=== PATIENT | male | born 1950 ===

== ENCOUNTER 2016-09-19 16:30 | Inpatient (IN) | payer MEDICAID, OTHER ==
[~2016-09-19] VITALS: Ht 167.6 cm; Wt 69.9 kg
[2016-09-19 17:05] VITALS: Ht 167.6 cm; Wt 69.9 kg
[2016-09-19 17:23] LABS: ADD SCAN DIFF NO
[2016-09-19 17:43] LABS: INR 1.09; PROTIME 14.1 Sec (12.2-14.2); PT RATIO 1.1
[2016-09-19 17:44] LABS: BASOPHILS % 0.3 % (0.0-2.0); EOSINOPHILS # 1.1 10^3/ul (0.0-0.5); EOSINOPHILS % 8.9 % (0.0-7.0); HEMATOCRIT 25.6 % (42.0-52.0); HEMOGLOBIN 8.3 g/dl (14.0-18.0); LYMPHOCYTES # 1.3 10^3/ul (0.8-2.9); LYMPHOCYTES % 11.2 % (15.0-51.0); MEAN CORPUSCULAR HEMOGLOBIN 32.5 pg (29.0-33.0); MEAN CORPUSCULAR HGB CONC 32.4 g/dl (32.0-37.0); MEAN CORPUSCULAR VOLUME 100.4 fl (82.0-101.0); MEAN PLATELET VOLUME 9.8 fl (7.4-10.4); MONOCYTES % 7.9 % (0.0-11.0); NEUTROPHIL # 8.5 10^3/ul (1.6-7.5); NEUTROPHILS % 70.6 % (39.0-77.0); PARTIAL THROMBOPLASTIN TIME 41.9 Sec (25.0-35.0); PLATELET COUNT 480 10^3/UL (140-415); RED BLOOD COUNT 2.55 10^6/ul (4.70-6.10); RED CELL DISTRIBUTION WIDTH 14.7 % (11.5-14.5)
[2016-09-19 17:49] LABS: CHLORIDE 97 mmol/L (97-110); POTASSIUM 4.8 mmol/L (3.5-5.1); SODIUM 136 mmol/L (135-144)
[2016-09-19 17:51] LABS: CREATININE 0.79 mg/dl (0.61-1.24)
[2016-09-19 17:52] LABS: ANION GAP 16 (8-16); BLOOD UREA NITROGEN 35 mg/dl (7-20); CALCIUM 10.1 mg/dl (8.4-10.2); CARBON DIOXIDE 28 mmol/L (21-31); GLUCOSE 102 mg/dl (70-220)
[2016-09-19 17:53] LABS: CREATINE KINASE 137 IU/L (23-200)
[2016-09-19 18:01] LABS: CK-MB 5.22 ng/ml (0.0-2.4)
[2016-09-19 18:09] LABS: TROPONIN-I < 0.012 ng/ml (0.00-0.12)
[2016-09-19 18:10] LABS: TROPONIN-I < 0.012 ng/ml (0.00-0.12)
--- NOTE | 2016-09-19 18:21 | RADRPT ---
PROCEDURE: XR Chest. CLINICAL INDICATION: Chest pain. TECHNIQUE: Single frontal chest x-ray. COMPARISON: None. FINDINGS: Tracheostomy tube tip is at the level of clavicles. Right PICC line tips in the SVC. Heart is norm al size. There are atherosclerotic calcifications of the aortic knob. Lungs are hyperinflated. There is no definite CHF. There is patchy left basilar atelectasis versus infiltrate. There is no pleura l effusion. There is no pneumothorax. The osseous structures are unremarkable. IMPRESSION: Hyperinflation. No CHF. Patchy left basilar atelectasis versus infiltrate. Tracheostomy tube and right PICC line as described above. RPTAT: HMVK .Gerard Sprague MD, Date Time Electronically viewed and signed by .Gerard Sprague MD, on 09/19/2016 18:21 .K/
[2016-09-19] MEDS ORDERED: CEFEPIME 2GM/50 ML (PMX) 50 ML IVPB STA (18:40)
[2016-09-19] MEDS ORDERED: SODIUM CHLORIDE 0.9% 1L BAG IV* STA (18:40)
[2016-09-19] MEDS ORDERED: VANCOMYCIN 1 GM (PMX) 250 ML IVPB STA (18:40)
[2016-09-19] MEDS ORDERED: ASC500 GTB (18:47)
[2016-09-19] MEDS ORDERED: ENOX100D2 SC (18:50)
[2016-09-19] MEDS ORDERED: FURO40TA4 GTB (18:51)
[2016-09-19] MEDS ORDERED: FER325 GTB (18:51)
[2016-09-19] MEDS ORDERED: HYDR-3670 GTB (18:52)
[2016-09-19] MEDS ORDERED: LEVE750T70 GTB (18:53)
[2016-09-19] MEDS ORDERED: LABE100T3 GTB (18:53)
[2016-09-19] MEDS ORDERED: MULT-105 GTB (18:54)
[2016-09-19] MEDS ORDERED: PRO20 GTB (18:55)
[2016-09-19] MEDS ORDERED: ZINC220T GTB (18:56)
[2016-09-19] MEDS ORDERED: SODI1TAB2 GTB (18:57)
[2016-09-19] MEDS ORDERED: PROP20TA4 GTB (18:58)
[2016-09-19] MEDS ORDERED: AMIN30LI GTB (19:00)
[2016-09-19] MEDS ORDERED: LEVA0.634 INHALATION (19:01)
[2016-09-19] MEDS ORDERED: HYDR-906 GTB (19:04)
[2016-09-19] MEDS ORDERED: IPRA3AMP INHALATION (19:04)
[2016-09-19] MEDS ORDERED: FLEETPED PR (19:06)
[2016-09-19] MEDS ORDERED: LORA0.5T GTB (19:06)
[2016-09-19] MEDS ORDERED: DULR PR (19:07)
[2016-09-19] MEDS ORDERED: ACET325T33 GTB (19:10)
[2016-09-19 19:25] LABS: ADD UMIC YES; URINE BILIRUBIN (Dip) NEGATIVE (NEGATIVE); URINE BLOOD (Dip) 1+ (NEGATIVE); URINE COLOR LT. YELLOW (YELLOW); URINE GLUCOSE (Dip) NEGATIVE (NEGATIVE); URINE KETONES (Dip) NEGATIVE (NEGATIVE); URINE LEUKOCYTE ESTERASE (Dip) 1+ (NEGATIVE); URINE NITRITE (Dip) NEGATIVE (NEGATIVE); URINE TOTAL PROTEIN (Dip) NEGATIVE (NEGATIVE); URINE UROBILINOGEN (Dip) 0.2 E.U./dL (0.1-1.0)
[2016-09-19] MEDS ORDERED: SOD CHLORIDE 0.9% 1,000 ML IV SCH (19:29)
[2016-09-19] MEDS ORDERED: ONDANSETRON 4 MG INJ IV PRN (19:30)
[2016-09-19] MEDS ORDERED: ACETAMINOPHEN 325 MG TAB PO PRN (19:30)
[2016-09-19 19:36] LABS: URINE RBCS >50 /HPF (0)
--- NOTE | 2016-09-19 19:36 | ERA ---
ER Documentation Chief Complaint Date/Time DATE: 09/19/16 TIME: 19:31 Chief Complaint wound check right hip and sacroccoxyc HPI History obtained from patient's nursing reports this patient was unable to give a history secondary to his clinical condition. This is a 65-year-old male who presents to the emergency room for evaluation of wounds on his back and right leg. The patient was also tachycardic, there is concern for possible infection so the patient was sent to the ER for further evaluation. This patient does have chronic a sacral decubitus ulcers. He is vent dependent with a PEG. ROS All systems reviewed and are negative except as per history of present illness. Medications Home Meds Reported Medications Acetaminophen* (Tylenol*) 325 Mg Tablet, 650 MG GTB Q6H Y for MILD PAIN 1-10/21, TAB FOR FEVER MORE 100F 09/19/16 Bisacodyl* (Bisacodyl*) 10 Mg Supp, 10 MG RI DAILY, SUPP 09/19/16 Sod Phosphate/Sod Biphosphate* (Fleet* Enema Pediatric) 66.6 Ml Soln, 66.6 ML RI Q3D Y for CONSTIPATION, ENEMA 09/19/16 Lorazepam* (Lorazepam*) 0.5 Mg Tablet, 0.5 MG GTB Q6 Y for ANXIETY, TAB 09/19/16 Hydrocodone/Acetaminophen ([place]addock 5-325 Tablet) 1 Each Tablet, 1 EACH GTB Q4H, TAB 09/19/16 Ipratropium-Albuterol (Ipratropium-Albuterol) 0.5-3 Mg/3 Ml Ampul.neb, 3 ML INHALATION Q2H, #30 VIAL 09/19/16 Levalbuterol Hcl* (Levalbuterol Hcl*) 0.63 Mg/3 Ml Vial.neb, 0.63 MG INHALATION Q6H Y for WHEEZING AND SOB, VIAL 09/19/16 Amino Acids/Protein Hydrolys (PRO-STAT LIQUID) 30 Ml Liquid.pkt, 20 ML GTB TID 09/19/16 Propranolol Hcl* (Propranolol Hcl*) 20 Mg Tablet, 20 MG GTB TID, TAB 09/19/16 Sodium Chloride* (Sodium Chloride*) 1 Gm Tablet, 1 GM GTB BID, TAB 09/19/16 Zinc Sulfate* (Zinc Sulfate*) 220 Mg Tablet, 220 MG GTB DAILY, TAB 09/19/16 Nifedipine* (Procardia*) 20 Mg Cap, 20 MG GTB Q3, CAP 09/19/16 Multivitamin with Minerals (Multivitamins with Minerals) 1 Each Tablet, 1 EACH GTB DAILY, TAB 09/19/16 Labetalol Hcl* (Labetalol Hcl*) 100 Mg Tablet, 100 MG GTB BID, TAB 09/19/16 Levetiracetam* (Keppra*) 750 Mg Tablet, 750 MG GTB BID, TAB 09/19/16 Hydralazine Hcl* (Hydralazine Hcl*) 10 Mg Tablet, 10 MG GTB QID Y for HTN, #60 TAB 09/19/16 Furosemide* (Furosemide*) 40 Mg Tablet, 40 MG GTB QAM, TAB 09/19/16 Ferrous Sulfate* (Ferrous Sulfate*) 325 Mg Tabec, 325 MG GTB TID, TAB 09/19/16 Enoxaparin Sodium (Enoxaparin Sodium) 100 Mg/1 Ml Syringe, 70 MG SC Q12, SYR 09/19/16 Ascorbic Acid (Vitamin C) 500 Mg Tab, 500 MG GTB DAILY, TAB 09/19/16 Allergies Allergies: Coded Allergies: No Known Allergy (Unverified , 09/19/16) PMhx/Soc Medical and Surgical Hx: Unable to obtain Hx Respiratory Disorders: Yes (RESPIRATORY FAILURE ) Hx Cardiac Disorders: Yes (HTN) Hx Miscellaneous Medical Probl: Yes (ANEMIA, SEIZURES, ) Hx Alcohol Use: No Hx Substance Use: No Hx Tobacco Use: No Smoking Status: Unknown if ever smoked Physical Exam Vitals Vital Signs Date Time Temp Pulse Resp B/P Pulse Ox O2 Delivery O2 Flow Rate FiO2 09/19/16 17:10 93 29 100 35 09/19/16 17:05 99.2 95 12 119/76 100 Physical Exam INITIAL VITAL SIGNS: Reviewed by me GENERAL: The patient is poorly developed, no acute disc HEENT: Trach to vent, pupils equal, round, and reactive to light. EOMI. There is no scleral icterus. NECK: C-spine is soft and supple, there is no meningismus. There is no cervical lymphadenopathy. LUNGS: Coarse breath sounds bilaterally. There are no rales, wheezes or rhonchi. HEART: Tachycardia, no murmurs, clicks, rubs or gallops. ABDOMEN: PEG tube in place soft, non-tender, non-distended. There are bowel sounds in all four quadrants. No rebound or guarding. EXTREMITIES: There is no peripheral cyanosis or edema. No focal swelling or erythema. NEUROLOGICAL: The patient moves all four extremities with 5/5 strength. Cranial nerves II - XII are intact. Normal gait. Alert and oriented SKIN: Stage IV sacral decubitus ulcer noted over the lumbosacral area with surrounding area of cellulitis, second decubitus ulcer noted in the midthoracic portion of the back with surrounding area of cellulitis, third decubitus ulcer noted over the right lateral portion of the proximal thigh with surrounding his eyes, all with mild purulent drainage there is no apparent rash or petechiae. HEME/LYMPHATIC: There is no evidence of excessive bruising or lymphedema. PSYCHIATRIC: The patient does not appear anxious or depressed. Result Diagram: 09/19/16 1715 09/19/16 1715 Results 24 hrs Laboratory Tests Test 09/19/16 17:15 09/19/16 19:00 Activated Partial Thromboplast Time 41.9Sec Anion Gap 16 Basophils # 0.010^3/ul Basophils % 0.3% Blood Urea Nitrogen 35mg/dl Calcium Level 10.1mg/dl Carbon Dioxide Level 28mmol/L Chloride Level 97mmol/L Creatine Kinase 137IU/L Creatine Kinase Index 3.8 Creatinine 0.79mg/dl Creatinine Kinase MB (Mass) 5.22ng/ml Eosinophils # 1.110^3/ul Eosinophils % 8.9% Glucose Level 102mg/dl Hematocrit 25.6% Hemoglobin 8.3g/dl INR International Normalized Ratio 1.09 Lymphocytes # 1.310^3/ul Lymphocytes % 11.2% Mean Corpuscular Hemoglobin 32.5pg Mean Corpuscular Hemoglobin Concent 32.4g/dl Mean Corpuscular Volume 100.4fl Mean Platelet Volume 9.8fl Monocytes # 1.010^3/ul Monocytes % 7.9% Neutrophils # 8.510^3/ul Neutrophils % 70.6% Nucleated Red Blood Cells # 0.010^3/ul Nucleated Red Blood Cells % 0.0/100WBC Platelet Count 01269^3/UL Potassium Level 4.8mmol/L Prothrombin Time 14.1Sec Prothrombin Time Ratio 1.1 Red Blood Count 2.5510^6/ul Red Cell Distribution Width 14.7% Sodium Level 136mmol/L Troponin I < 0.012ng/ml White Blood Count 12.010^3/ul Urine Bilirubin NEGATIVE Urine Clarity SLIGHTLY CLOUDY Urine Color LT. YELLOW Urine Glucose NEGATIVE% Urine Hemoglobin 1+ Urine Ketones NEGATIVE Urine Leukocyte Esterase 1+ Urine Microscopic RBC Pending Urine Microscopic WBC Pending Urine Nitrite NEGATIVE Urine Specific [place] 1.015 Urine Total Protein NEGATIVE Urine Urobilinogen 0.2 E.U./dL Urine pH 6.0 Current Medications Medications (Trade) Dose Ordered Sig/Juan Route PRN Reason Start Time Stop Time Status Last Admin Dose Admin Sodium Chloride 2540 ml 2,540 ml BOLUS OVER 2 HOURS STAT IV* 09/19/16 18:40 09/19/16 18:41 DC 09/19/16 19:07 Vancomycin HCl 250 ml @ 125 mls/hr ONCE STAT IVPB 09/19/16 18:40 09/19/16 20:39 Cefepime HCl (Maxipime 2gm/50 ml (Pmx)) 50 ml @ 100 mls/hr ONCE STAT IVPB 09/19/16 18:40 09/19/16 19:09 DC 09/19/16 19:08 Procedures/MDM Chest X-ray 1V Interpreted by me: Soft Tissue: Left lobe pneumonia Bones: No acute abnormalities Mediastinum/Cardiac Silhouette/Lungs: [No acute abnormalities] This 65-year-old male presents to the ER for evaluation of sacral decubitus ulcers, tachycardia. When I evaluated this patient I did note multiple sacral decubitus ulcers with mild purulent drainage, surrounding area of cellulitis. The patient was also found a left lower lobe pneumonia. Given this patient's age, symptoms, and slight leukocytosis this patient will be placed in for admission. Blood cultures were obtained. The patient was started on vancomycin and cefepime here in the emergency room and the patient will be placed in for admission to her panel physician . This patient does meet sepsis criteria due to an elevation in white blood cell count, and tachycardia with source of infection. The patient was given greater than 30 cc/ kg of IV normal saline. No need for vasopressors as this patient's mean arterial pressures greater than 65 at this time. This patient is hemodynamically stable however given the trach to vent the patient will be placed on the telemetry floor. Critical Care: Excluding all billable procedures Time: 35 minutes Treatments/Evaluations: Close monitoring and treatment of unstable vital signs, cardiorespiratory, and neurologic status, while maintaining tight balance of fluid, respiratory, and cardiac interventions. Departure Diagnosis: Primary Impression: Sepsis Additional Impressions: Left lower lobe pneumonia Sacral decubitus ulcer, stage IV Normocytic anemia Acute cystitis Ventilator dependent Acute prerenal azotemia Condition: SOPHIA Pizarro DO Sep 19, 2016 19:36
[2016-09-19 19:38] LABS: BACTERIA,URINE FEW; TRANSITIONAL EPI CELLS,URINE FEW
[2016-09-19] MEDS: SOD CHLORIDE 0.9% 1,000 ML IV SCH (20:12)
--- NOTE | 2016-09-19 20:12 | HP ---
Date/Time of Note Date/Time of Note DATE: 09/19/16 TIME: 19:41 Assessment/Plan VTE Prophylaxis VTE Prophylaxis Intervention: other (Enoxiparin) Lines/Catheters IV Catheter Type (from Nrs): PEG Tube Assessment/Plan Assessment/Plan 1) Sepsis due to infected decubitus ulcers - Admit to Telemetry - Broad-spectrum antibiotics: Vanco and Cefipime 2) Left lower lobe pneumonia - Will be covered by the Abx in #1 3) Sacral decubitus ulcer, stage IV - Wound cultures - Wound Care Consult - Air Mattress - Reposition frequently 4) Normocytic anemia, Anemia of Chronic Disease vs Iron Deficiency vs. Blood Loss, vs ? 5) Acute cystitis with yeast - Start Fluconazole - Consider ID consult. 6) Ventilator dependent - Continue current settings. 7) Acute prerenal azotemia - Rehydration with IVF HPI/ROS Admit Date/Time Admit Date/Time Hx of Present Illness Chief Complaint wound check right hip and sacroccoxyc HPI History obtained from patient's son and ER records as patient unable to give a history secondary to his clinical condition. This is a 65-year-old male who presents to the emergency room for evaluation of wounds on his back and right leg. The patient was also tachycardic, there is concern for possible infection so the patient was sent to the ER ffrom his SNF for further evaluation. This patient does have chronic a sacral decubitus ulcers. He is vent dependent with a PEG tube. ROS Subjective hx not possible: other (Clinical Condition) PMH/Family/Social Past Medical History Medical History: other (Ventilator Dependent. No spine injury per son.) Family History Significant Family History: no pertinent family hx, other (Brain Surgery after a high fall about 6 months ago. Prior to the fall, he was highly functioning per his son.) Social History Enjoys music, especially the guitar. Smoking Status: Former smoker Exam/Review of Systems Vital Signs Vitals Vital Signs Date Time Temp Pulse Resp B/P Pulse Ox O2 Delivery O2 Flow Rate FiO2 09/19/16 17:10 93 29 100 35 09/19/16 17:05 99.2 119/76 Exam Exam GENERAL: The patient is on a ventilator with his tracheostomy. He is lying comfortable. HEENT: Trach to vent, pupils equal, round, and reactive to light. EOMI. There is no scleral icterus. NECK: C-spine is soft and supple. No cervical lymphadenopathy. LUNGS: Coarse breath sounds bilaterally. There are no rales, wheezes or rhonchi. HEART: Tachycardia, no murmurs, clicks, rubs or gallops. ABDOMEN: PEG tube in place soft, non-tender, non-distended. There are bowel sounds in all four quadrants. No rebound or guarding. EXTREMITIES: There is no peripheral cyanosis or edema. Bilater Trace pedal edema. NEUROLOGICAL: The patient moves all four extremities but does not follow commands. Sleepy. Obviously bedbound. Feet are in extreme plantarflexion. SKIN: Skin is waxy. Stage IV sacral decubitus ulcer noted over the lumbosacral area with surrounding area of cellulitis, second decubitus ulcer noted in the midthoracic portion of the back with surrounding area of cellulitis, third decubitus ulcer noted over the right lateral portion of the proximal thigh with surrounding his eyes, all with mild purulent drainage there is no apparent rash or petechiae. HEME/LYMPHATIC: There is no evidence of excessive bruising or lymphedema. PSYCHIATRIC: Unable to assess. Labs Result Diagram: 09/19/16 1715 09/19/16 1715 Medications Medications Current Medications Sodium Chloride (NS) 1,000 ml @ 80 mls/hr [id number] IV ; Start 09/19/16 at 19:29; Stop 09/20/16 at 07:58 Procedures Procedures Laboratory Tests Test 09/19/16 17:15 09/19/16 19:00 Activated Partial Thromboplast Time 41.9Sec Anion Gap 16 Basophils # 0.010^3/ul Basophils % 0.3% Blood Urea Nitrogen 35mg/dl Calcium Level 10.1mg/dl Carbon Dioxide Level 28mmol/L Chloride Level 97mmol/L Creatine Kinase 137IU/L Creatine Kinase Index 3.8 Creatinine 0.79mg/dl Creatinine Kinase MB (Mass) 5.22ng/ml Eosinophils # 1.110^3/ul Eosinophils % 8.9% Glucose Level 102mg/dl Hematocrit 25.6% Hemoglobin 8.3g/dl INR International Normalized Ratio 1.09 Lymphocytes # 1.310^3/ul Lymphocytes % 11.2% Mean Corpuscular Hemoglobin 32.5pg Mean Corpuscular Hemoglobin Concent 32.4g/dl Mean Corpuscular Volume 100.4fl Mean Platelet Volume 9.8fl Monocytes # 1.010^3/ul Monocytes % 7.9% Neutrophils # 8.510^3/ul Neutrophils % 70.6% Nucleated Red Blood Cells # 0.010^3/ul Nucleated Red Blood Cells % 0.0/100WBC Platelet Count 39034^3/UL Potassium Level 4.8mmol/L Prothrombin Time 14.1Sec Prothrombin Time Ratio 1.1 Red Blood Count 2.5510^6/ul Red Cell Distribution Width 14.7% Sodium Level 136mmol/L Troponin I < 0.012ng/ml White Blood Count 12.010^3/ul Urine Bilirubin NEGATIVE Urine Clarity SLIGHTLY CLOUDY Urine Color LT. YELLOW Urine Glucose NEGATIVE% Urine Hemoglobin 1+ Urine Ketones NEGATIVE Urine Leukocyte Esterase 1+ Urine Microscopic RBC Pending Urine Microscopic WBC Pending Urine Nitrite NEGATIVE Urine Specific [place] 1.015 Urine Total Protein NEGATIVE Urine Urobilinogen 0.2 E.U./dL Urine pH 6.0 EKG: Accelerated Junctional rhythm at 93 BPM. No acute changes. RADIOLOGY: PROCEDURE: XR Chest. CLINICAL INDICATION: Chest pain. TECHNIQUE: Single frontal chest x-ray. COMPARISON: None. FINDINGS: Tracheostomy tube tip is at the level of clavicles. Right PICC line tips in the SVC. Heart is normal size. There are atherosclerotic calcifications of the aortic knob. Lungs are hyperinflated. There is no definite CHF. There is patchy left basilar atelectasis versus infiltrate. There is no pleural effusion. There is no pneumothorax. The osseous structures are unremarkable. IMPRESSION: Hyperinflation. No CHF. Patchy left basilar atelectasis versus infiltrate. Tracheostomy tube and right PICC line as described above. VAN CRANDALL DO Sep 19, 2016 20:12
[2016-09-19] MEDS ORDERED: LORAZEPAM 0.5 MG TAB GTB PRN (20:30)
[2016-09-19] MEDS ORDERED: NA PHOSPHATE/BIPHOS 66.6 ML ENEMA PR PRN (20:30)
[2016-09-19] MEDS ORDERED: NITROGLYCERIN (SL) 0.4 MG TAB SL PRN (20:30)
[2016-09-19] MEDS ORDERED: ALBUTEROL/IPRATROPIUM (NEB) 3 ML AMP NEB SCH (20:30)
[2016-09-19] MEDS ORDERED: NACL 0.9% 3 ML SYG IV SCH ×2 (20:30)
[2016-09-19] MEDS ORDERED: ACETAMINOPHEN 325 MG TAB GTB PRN (20:30)
[2016-09-19] MEDS ORDERED: LEVALBUTEROL (NEB) 0.63 MG/3 ML AMP NEB PRN (20:30)
[2016-09-19] MEDS ORDERED: PROTEIN HYDROLYS GTB SCH (21:00)
[2016-09-19] MEDS ORDERED: AMINO ACIDS GTB SCH (21:00)
[2016-09-19] MEDS: SODIUM CHLORIDE 1 GM TAB GTB SCH (21:00)
[2016-09-19] MEDS ORDERED: VANCOMYCIN IV PER PHARMACY XX SCH (21:30)
[2016-09-19] MEDS: [UNRECOGNIZED DRUG - REMARK] XX SCH (22:00)
[2016-09-19] MEDS: ENOXAPARIN 80 MG/0.8 ML SYG SC SCH (23:47)
[2016-09-19] MEDS: HYDROCODONE/APAP (5/325) TAB GTB SCH (23:48)
[2016-09-20] VITALS (14 sets, daily range): BP systolic 127–136; BP diastolic 75–81; PULSE 91–105; RESP 13–25; TEMP 97.8
[2016-09-20] MEDS: ALBUTEROL HFA 8 GM INHALER INH SCH ×6 (01:00→11:00)
[2016-09-20] MEDS: IPRATROPIUM (HFA) 12.9 GM INHALER INH SCH ×6 (01:00→11:00)
[2016-09-20] MEDS: HYDROCODONE/APAP (5/325) TAB GTB SCH ×2 (02:15→10:15)
[2016-09-20] MEDS: NIFEdipine 10 MG CAP GTB SCH ×8 (03:00→21:59)
[2016-09-20] MEDS: FERROUS SULFATE (EC) 325 MG TAB PO SCH ×4 (03:08→21:58)
[2016-09-20] MEDS: PROPRANOLOL 20 MG TAB GTB SCH ×4 (03:08→21:58)
[2016-09-20] MEDS: LABETALOL 100 MG TAB GTB SCH ×3 (03:10→21:58)
[2016-09-20] MEDS: MULTIVITAMINS 5 ML CUP GTB SCH ×2 (03:10→13:20)
[2016-09-20] MEDS: LEVETIRACETAM 750 MG TAB GTB SCH ×3 (03:10→21:58)
[2016-09-20 05:58] LABS: ADD SCAN DIFF NO
[2016-09-20] MEDS: VANCOMYCIN 1.25 GM in SOD CHLORIDE 0.9% 250 ML IVPB SCH ×2 (06:00→16:36)
[2016-09-20 06:04] LABS: BASOPHILS % 0.2 % (0.0-2.0); EOSINOPHILS # 1.2 10^3/ul (0.0-0.5); EOSINOPHILS % 9.6 % (0.0-7.0); HEMATOCRIT 24.8 % (42.0-52.0); HEMOGLOBIN 7.9 g/dl (14.0-18.0); LYMPHOCYTES # 1.3 10^3/ul (0.8-2.9); LYMPHOCYTES % 10.1 % (15.0-51.0); MEAN CORPUSCULAR HEMOGLOBIN 32.6 pg (29.0-33.0); MEAN CORPUSCULAR HGB CONC 31.9 g/dl (32.0-37.0); MEAN CORPUSCULAR VOLUME 102.5 fl (82.0-101.0); MEAN PLATELET VOLUME 9.6 fl (7.4-10.4); MONOCYTE # 0.9 10^3/ul (0.3-0.9); MONOCYTES % 6.9 % (0.0-11.0); NEUTROPHILS % 72.2 % (39.0-77.0); PLATELET COUNT 437 10^3/UL (140-415); RED BLOOD COUNT 2.42 10^6/ul (4.70-6.10); RED CELL DISTRIBUTION WIDTH 14.6 % (11.5-14.5); WHITE BLOOD COUNT 12.5 10^3/ul (4.8-10.8)
[2016-09-20 07:02] LABS: CK-MB 9.21 ng/ml (0.0-2.4)
[2016-09-20 07:05] LABS: TROPONIN-I 0.014 ng/ml (0.00-0.12)
[2016-09-20 07:08] LABS: ALBUMIN/GLOBULIN RATIO 0.76; BILIRUBIN,INDIRECT 0.1 mg/dl (0-1.1); BILIRUBIN,TOTAL 0.1 mg/dl (0.2-1.3); CREATININE 0.64 mg/dl (0.61-1.24); TOTAL PROTEIN 6.9 g/dl (6.1-8.1)
[2016-09-20 07:09] LABS: CALCIUM 9.9 mg/dl (8.4-10.2); POTASSIUM 4.4 mmol/L (3.5-5.1)
[2016-09-20] MEDS ORDERED: CEFEPIME 2GM/50 ML (PMX) 50 ML IVPB SCH (09:00)
[2016-09-20] MEDS: [UNRECOGNIZED DRUG - REMARK] XX SCH ×2 (12:44→14:00)
[2016-09-20] MEDS: ZINC SULFATE 220 MG CAP GTB SCH (13:20)
[2016-09-20] MEDS: ASCORBIC ACID 500 MG TAB GTB SCH (13:20)
[2016-09-20] MEDS: ENOXAPARIN 80 MG/0.8 ML SYG SC SCH ×2 (13:21→22:15)
--- NOTE | 2016-09-20 13:59 | PN ---
Date/Time of Note Date/Time of Note DATE: 09/20/16 TIME: 13:52 Assessment/Plan VTE Prophylaxis VTE Prophylaxis Intervention: SCD's Lines/Catheters IV Catheter Type (from Nrs): PEG Tube Assessment/Plan Chief Complaint/Hosp Course Assessment/Plan 1) Sepsis due to infected decubitus ulcers Continue broad-spectrum antibiotics: Vanco and Cefipime 2) Left lower lobe pneumonia Continue antibiotics as above 3) Sacral decubitus ulcer, stage IV Follow-up wound cultures Wound Care Consult, Air Mattress 4) Normocytic anemia, Anemia of Chronic Disease vs Iron Deficiency vs. Blood Loss, vs ? Continue to monitor 5) Acute cystitis with yeast Continue fluconazole 6) Ventilator dependent Continue current settings. Line Painting Machine Operator been consulted We will continue monitor patient closely for recommendation management treatment as clinical course Problems: Subjective 24 Hr Interval Summary Free Text/Dictation Patient is lying in bed comfortably Mildly groggy Tolerating PEG tube feeding Exam/Review of Systems Vital Signs Vitals Vital Signs Date Time Temp Pulse Resp B/P Pulse Ox O2 Delivery O2 Flow Rate FiO2 09/20/16 12:12 98 09/20/16 11:55 22 97 35 09/20/16 11:29 98.8 127/75 09/20/16 10:54 Mechanical Ventilator 09/20/16 06:45 15.0 Exam General: The patient is not in acute distress. HEENT: Atraumatic, normocephalic. The pupils are equal and round . Neck: Trach in place Chest: Normal expansion of the thorax during inspiration Lungs: Scattered rhonchi Heart: Normal S1-S2, Regular rhythm and rate. Abdomen: Soft , nontender, nondistended , bowel sounds are present. PEG tube in place Extremities: Normal to inspection, no edema no cyanosis Neurologic:The patient is awake, and arousable Results Result Diagram: 09/20/16 0550 09/20/16 0550 Results 24 hrs Laboratory Tests Test 09/19/16 17:15 09/19/16 18:39 09/19/16 19:00 09/19/16 21:07 Activated Partial Thromboplast Time 41.9 H Anion Gap 16 Basophils # 0.0 Basophils % 0.3 Blood Urea Nitrogen 35 H Calcium Level 10.1 Carbon Dioxide Level 28 Chloride Level 97 Creatine Kinase 137 Creatine Kinase Index 3.8 Creatinine 0.79 Creatinine Kinase MB (Mass) 5.22 H Eosinophils # 1.1 H Eosinophils % 8.9 H Glucose Level 102 Hematocrit 25.6 L Hemoglobin 8.3 L INR International Normalized Ratio 1.09 Lymphocytes # 1.3 Lymphocytes % 11.2 L Mean Corpuscular Hemoglobin 32.5 Mean Corpuscular Hemoglobin Concent 32.4 Mean Corpuscular Volume 100.4 Mean Platelet Volume 9.8 Monocytes # 1.0 H Monocytes % 7.9 Neutrophils # 8.5 H Neutrophils % 70.6 Nucleated Red Blood Cells # 0.0 Nucleated Red Blood Cells % 0.0 Platelet Count 480 H Potassium Level 4.8 Prothrombin Time 14.1 Prothrombin Time Ratio 1.1 Red Blood Count 2.55 L Red Cell Distribution Width 14.7 H Sodium Level 136 Troponin I < 0.012 White Blood Count 12.0 H Lactic Acid Level 1.7 0.6 Urine Bacteria FEW Urine Bilirubin NEGATIVE Urine Clarity SLIGHTLY CLOUDY Urine Color LT. YELLOW Urine Glucose NEGATIVE Urine Hemoglobin 1+ H Urine Ketones NEGATIVE Urine Leukocyte Esterase 1+ H Urine Microscopic RBC >50 Urine Microscopic WBC >50 Urine Nitrite NEGATIVE Urine Specific [place] 1.015 Urine Total Protein NEGATIVE Urine Transitional Epithelial Cells FEW Urine Urobilinogen 0.2 E.U./dL Urine Yeast MANY Urine pH 6.0 Test 09/19/16 23:26 09/20/16 05:50 Lactic Acid Level < 0.5 L Alanine Aminotransferase (ALT/SGPT) 29 Albumin 3.0 L Albumin/Globulin Ratio 0.76 Alkaline Phosphatase 112 Anion Gap 15 Aspartate Amino Transf (AST/SGOT) 35 Basophils # 0.0 Basophils % 0.2 Blood Urea Nitrogen 26 H Calcium Level 9.9 Carbon Dioxide Level 26 Chloride Level 102 Creatine Kinase 144 Creatine Kinase Index 6.4 Creatinine 0.64 Creatinine Kinase MB (Mass) 9.21 H Direct Bilirubin 0.00 Eosinophils # 1.2 H Eosinophils % 9.6 H Globulin 3.90 H Glucose Level 102 Hematocrit 24.8 L Hemoglobin 7.9 L Indirect Bilirubin 0.1 Lymphocytes # 1.3 Lymphocytes % 10.1 L Mean Corpuscular Hemoglobin 32.6 Mean Corpuscular Hemoglobin Concent 31.9 L Mean Corpuscular Volume 102.5 H Mean Platelet Volume 9.6 Monocytes # 0.9 Monocytes % 6.9 Neutrophils # 9.0 H Neutrophils % 72.2 Nucleated Red Blood Cells # 0.0 Nucleated Red Blood Cells % 0.0 Platelet Count 437 H Potassium Level 4.4 Red Blood Count 2.42 L Red Cell Distribution Width 14.6 H Sodium Level 139 Total Bilirubin 0.1 L Total Protein 6.9 Troponin I 0.014 White Blood Count 12.5 H Medications Medications Current Medications Acetaminophen (Tylenol Tab) 650 mg Q6H PRN GTB MILD PAIN -10/21; Start 09/19/16 at 20:30 Ascorbic Acid (Vitamin C) 500 mg DAILY GTB Last administered on 09/20/16 13:20 ; Admin Dose 500 MG; Start 09/20/16 at 09:00 Bisacodyl (Dulcolax Supp) 10 mg DAILY [place] ; Start 09/20/16 at 09:00 Enoxaparin Sodium (Lovenox) 70 mg Q12 SC Last administered on 09/20/16 13:21; Admin Dose 70 MG; Start 09/19/16 at 21:00 Ferrous Sulfate (Ferrous Sulfate (Ec)) 325 mg TID PO Last administered on 13:20; Admin Dose 325 MG; Start 09/19/16 at 21:00 Furosemide (Lasix) 40 mg QAM GTB ; Start 09/20/16 at 09:00 Hydralazine HCl (Apresoline) 10 mg QID PRN GTB HTN; Start 09/19/16 at 20:30 Acetaminophen/ Hydrocodone Bitart ([place] (5/325)) 1 tab Q4H GTB Last administered on 09/19/16 23:48; Admin Dose 1 TAB; Start 09/19/16 at 22:15 Labetalol HCl (Normodyne) 100 mg BID GTB Last administered on 09/20/16 03:10; Admin Dose 100 MG; Start 09/19/16 at 21:00 Levetiracetam (Keppra) 750 mg BID GTB Last administered on 09/20/16 03:10; Admin Dose 750 MG; Start 09/19/16 at 21:00 Lorazepam (Ativan) 0.5 mg Q6 PRN GTB ANXIETY; Start 09/19/16 at 20:30 Nifedipine (Procardia) 20 mg Q3 GTB Last administered on 09/20/16 03:09; Admin Dose 20 MG; Start 09/20/16 at 00:00 Propranolol HCl (Inderal) 20 mg TID GTB Last administered on 09/20/16 03:08; Admin Dose 20 MG; Start 09/19/16 at 22:15 Sodium Biphosphate/ Sodium Phosphate (Fleet Enema Pediatric) 66.6 ml Q3D PRN [place] CONSTIPATION; Start 09/19/16 at 20:30 Sodium Chloride (Nacl) 1 gm BID GTB ; Start 09/19/16 at 21:00 Zinc Sulfate (Zinc Sulfate) 220 mg DAILY GTB Last administered on 09/20/16 13: 20; Admin Dose 220 MG; Start 09/20/16 at 09:00 Miscellaneous Information 20 ml TID GTB ; Start 09/19/16 at 21:00; Status UNV Multivitamins 5 ml 5 ml DAILY GTB Last administered on 09/20/16 13:20; Admin Dose 5 ML; Start 09/20/16 at 09:00 Sodium Chloride (NS) 1,000 ml @ 50 mls/hr Q20H IV ; Start 09/19/16 at 20:12 Nitroglycerin (Nitroglycerin (Sl Tab) 0.4 Mg) 1 tab Q5M PRN SL CHEST PAIN; Start 09/19/16 at 20:30 Miscellaneous Information CEFEPIME...X1 DOSE ONLY??? MEDICAT... Q8H XX ; Start 09/19/16 at 22:00 Vancomycin HCl/ Sodium Chloride (Vancocin/NS) 250 ml @ 83.333 mls/ hr Q12H IVPB ; Start 09/20/16 at 06:00 RAMANDEEP DYKES MD Sep 20, 2016 13:59
--- NOTE | 2016-09-20 15:01 | CONS ---
Date/Time of Note Date/Time of Note DATE: 09/20/16 TIME: 14:54 Assessment/Plan Assessment/Plan Additional Assessment/Plan Ventilator settings; assist control 18, tidal volume 500, PEEP of 5, 35% FiO2. Next Chest x-ray was reviewed from admission which is essentially clear. Urine analysis is grossly positive for infection. Fungal stain is positive Assessment recommendations; 1. Patient admitted for UTI and sepsis. Also with sacral decubitus ulcers. 2. Funguria. 3. Multiple other comorbidities as outlined above which all appear fairly stable. Continue current treatment. Add IV fluids and 400 mg IV daily. Continue current antibiotics. IV hydration started. Consultation Date/Type/Reason Admit Date/Time Date of Consultation: Sep 20, 2016 Type of Consultation: Pulmonary Reason for Consultation Pulmonary consultation obtained for evaluation and treatment of chronic respiratory failure. Patient admitted with UTI and sepsis. History presenting in his; patient is a 65-year-old white male who was admitted for treatment of UTI and sepsis. Patient also has multiple sacral decubitus ulcers. Patient was found to be febrile at the snf facility. History was obtained from medical records as owing to severe anoxic brain injury, patient is unable to give any history whatsoever. Past medical history; 1. Patient with chronic respiratory failure due to anoxic brain injury. 2. History of prior craniotomy due to a fall resulting in intracerebral bleed. 3. Anemia. 4. History of G-tube and tracheostomy. 5. History of seizure disorder. 6. Hypertension. 7. Seizure disorder. Medications; were reviewed. Allergies; are none. Social history; patient has a prior history of smoking. Family history; currently not available. Patient apparently does have a son. Neck Occupational history; patient used to play musical instruments. Review of systems; currently unable to be obtained. General examination; elderly male, opens eyes spontaneously but does not follow any commands. Patient on ventilator via tracheostomy. Currently in no distress. Past Medical History Medical History: other (Ventilator Dependent. No spine injury per son.) Social History Smoking Status: Former smoker Exam/Review of Systems Vital Signs Vitals Vital Signs Date Time Temp Pulse Resp B/P Pulse Ox O2 Delivery O2 Flow Rate FiO2 09/20/16 12:12 98 09/20/16 11:55 22 97 35 09/20/16 11:29 98.8 127/75 09/20/16 10:54 Mechanical Ventilator 09/20/16 06:45 15.0 Exam H EENT examination; supple neck, no JVD. No lymphadenopathy. Midline trachea. No thyromegaly. Tracheostomy in place with clean insertion site. Patient has carious teeth. Pupils are midsize and reactive to light. There is a well- healed frontal craniotomy scar. Chest examination; diminished but clear breath sounds bilaterally. S1-S2 audible, no murmurs. Regular rhythm. Abdomen examination; soft, nondistended. No organomegaly. G-tube in place. Bowel sounds audible. Extremity examination; no peripheral edema. Back examination of Gerard is a dressing applied over the sacral area. SUPERVISOR [employer]Y CELL ASSEMBLY examination; patient is awake but does not follow any commands. Results Result Diagram: 09/20/16 0550 09/20/16 0550 Results 24 hrs Laboratory Tests Test 09/19/16 17:15 09/19/16 18:39 09/19/16 19:00 09/19/16 21:07 Activated Partial Thromboplast Time 41.9 H Anion Gap 16 Basophils # 0.0 Basophils % 0.3 Blood Urea Nitrogen 35 H Calcium Level 10.1 Carbon Dioxide Level 28 Chloride Level 97 Creatine Kinase 137 Creatine Kinase Index 3.8 Creatinine 0.79 Creatinine Kinase MB (Mass) 5.22 H Eosinophils # 1.1 H Eosinophils % 8.9 H Glucose Level 102 Hematocrit 25.6 L Hemoglobin 8.3 L INR International Normalized Ratio 1.09 Lymphocytes # 1.3 Lymphocytes % 11.2 L Mean Corpuscular Hemoglobin 32.5 Mean Corpuscular Hemoglobin Concent 32.4 Mean Corpuscular Volume 100.4 Mean Platelet Volume 9.8 Monocytes # 1.0 H Monocytes % 7.9 Neutrophils # 8.5 H Neutrophils % 70.6 Nucleated Red Blood Cells # 0.0 Nucleated Red Blood Cells % 0.0 Platelet Count 480 H Potassium Level 4.8 Prothrombin Time 14.1 Prothrombin Time Ratio 1.1 Red Blood Count 2.55 L Red Cell Distribution Width 14.7 H Sodium Level 136 Troponin I < 0.012 White Blood Count 12.0 H Lactic Acid Level 1.7 0.6 Urine Bacteria FEW Urine Bilirubin NEGATIVE Urine Clarity SLIGHTLY CLOUDY Urine Color LT. YELLOW Urine Glucose NEGATIVE Urine Hemoglobin 1+ H Urine Ketones NEGATIVE Urine Leukocyte Esterase 1+ H Urine Microscopic RBC >50 Urine Microscopic WBC >50 Urine Nitrite NEGATIVE Urine Specific [place] 1.015 Urine Total Protein NEGATIVE Urine Transitional Epithelial Cells FEW Urine Urobilinogen 0.2 E.U./dL Urine Yeast MANY Urine pH 6.0 Test 09/19/16 23:26 09/20/16 05:50 Lactic Acid Level < 0.5 L Alanine Aminotransferase (ALT/SGPT) 29 Albumin 3.0 L Albumin/Globulin Ratio 0.76 Alkaline Phosphatase 112 Anion Gap 15 Aspartate Amino Transf (AST/SGOT) 35 Basophils # 0.0 Basophils % 0.2 Blood Urea Nitrogen 26 H Calcium Level 9.9 Carbon Dioxide Level 26 Chloride Level 102 Creatine Kinase 144 Creatine Kinase Index 6.4 Creatinine 0.64 Creatinine Kinase MB (Mass) 9.21 H Direct Bilirubin 0.00 Eosinophils # 1.2 H Eosinophils % 9.6 H Globulin 3.90 H Glucose Level 102 Hematocrit 24.8 L Hemoglobin 7.9 L Indirect Bilirubin 0.1 Lymphocytes # 1.3 Lymphocytes % 10.1 L Mean Corpuscular Hemoglobin 32.6 Mean Corpuscular Hemoglobin Concent 31.9 L Mean Corpuscular Volume 102.5 H Mean Platelet Volume 9.6 Monocytes # 0.9 Monocytes % 6.9 Neutrophils # 9.0 H Neutrophils % 72.2 Nucleated Red Blood Cells # 0.0 Nucleated Red Blood Cells % 0.0 Platelet Count 437 H Potassium Level 4.4 Red Blood Count 2.42 L Red Cell Distribution Width 14.6 H Sodium Level 139 Total Bilirubin 0.1 L Total Protein 6.9 Troponin I 0.014 White Blood Count 12.5 H Medications Medications Current Medications Acetaminophen (Tylenol Tab) 650 mg Q6H PRN GTB MILD PAIN -10/21; Start 09/19/16 at 20:30 Ascorbic Acid (Vitamin C) 500 mg DAILY GTB Last administered on 09/20/16 13:20 ; Admin Dose 500 MG; Start 09/20/16 at 09:00 Bisacodyl (Dulcolax Supp) 10 mg DAILY [place] ; Start 09/20/16 at 09:00 Enoxaparin Sodium (Lovenox) 70 mg Q12 SC Last administered on 09/20/16 13:21; Admin Dose 70 MG; Start 09/19/16 at 21:00 Ferrous Sulfate (Ferrous Sulfate (Ec)) 325 mg TID PO Last administered on 13:20; Admin Dose 325 MG; Start 09/19/16 at 21:00 Furosemide (Lasix) 40 mg QAM GTB ; Start 09/20/16 at 09:00 Hydralazine HCl (Apresoline) 10 mg QID PRN GTB HTN; Start 09/19/16 at 20:30 Acetaminophen/ Hydrocodone Bitart ([place] (5/325)) 1 tab Q4H GTB Last administered on 09/19/16 23:48; Admin Dose 1 TAB; Start 09/19/16 at 22:15 Labetalol HCl (Normodyne) 100 mg BID GTB Last administered on 09/20/16 03:10; Admin Dose 100 MG; Start 09/19/16 at 21:00 Levetiracetam (Keppra) 750 mg BID GTB Last administered on 09/20/16 03:10; Admin Dose 750 MG; Start 09/19/16 at 21:00 Lorazepam (Ativan) 0.5 mg Q6 PRN GTB ANXIETY; Start 09/19/16 at 20:30 Nifedipine (Procardia) 20 mg Q3 GTB Last administered on 09/20/16 03:09; Admin Dose 20 MG; Start 09/20/16 at 00:00 Propranolol HCl (Inderal) 20 mg TID GTB Last administered on 09/20/16 03:08; Admin Dose 20 MG; Start 09/19/16 at 22:15 Sodium Biphosphate/ Sodium Phosphate (Fleet Enema Pediatric) 66.6 ml Q3D PRN [place] CONSTIPATION; Start 09/19/16 at 20:30 Sodium Chloride (Nacl) 1 gm BID GTB ; Start 09/19/16 at 21:00 Zinc Sulfate (Zinc Sulfate) 220 mg DAILY GTB Last administered on 09/20/16 13: 20; Admin Dose 220 MG; Start 09/20/16 at 09:00 Miscellaneous Information 20 ml TID GTB ; Start 09/19/16 at 21:00; Status UNV Multivitamins 5 ml 5 ml DAILY GTB Last administered on 09/20/16 13:20; Admin Dose 5 ML; Start 09/20/16 at 09:00 Sodium Chloride (NS) 1,000 ml @ 50 mls/hr Q20H IV ; Start 09/19/16 at 20:12 Nitroglycerin (Nitroglycerin (Sl Tab) 0.4 Mg) 1 tab Q5M PRN SL CHEST PAIN; Start 09/19/16 at 20:30 Miscellaneous Information CEFEPIME...X1 DOSE ONLY??? MEDICAT... Q8H XX ; Start 09/19/16 at 22:00 Vancomycin HCl/ Sodium Chloride (Vancocin/NS) 250 ml @ 83.333 mls/ hr Q12H IVPB ; Start 09/20/16 at 06:00 MARTIR CURRIE Sep 20, 2016 15:01
[2016-09-20] MEDS: SODIUM CHLORIDE 1 GM TAB GTB SCH ×2 (15:11→21:57)
[2016-09-20] MEDS: BISACODYL 10 MG SUPP PR SCH (15:12)
[2016-09-20] MEDS: FUROSEMIDE 40 MG/4 ML CUP GTB SCH (15:12)
[2016-09-20] MEDS: SOD CHLORIDE 0.9% 1,000 ML IV SCH (15:30)
[2016-09-20] MEDS ORDERED: FLUCONAZOLE 400 MG/NS (PMX) 200 ML IVPB ONE (16:00)
[2016-09-20] MEDS: COLLAGENASE 30 GM TUBE TOP SCH (17:43)
[2016-09-20] MEDS: SODIUM HYPOCHLORITE 0.125% 473 ML BTL IRR SCH (17:43)
[2016-09-20] MEDS: FLUCONAZOLE 400 MG/NS (PMX) 200 ML IVPB SCH (18:34)
[2016-09-20] MEDS: CEFEPIME 2GM/50 ML (PMX) 50 ML IVPB SCH (21:57)
[2016-09-21] VITALS (27 sets, daily range): BP systolic 99–118; BP diastolic 55–70; PULSE 76–95; RESP 12–25
[2016-09-21] MEDS: HYDROCODONE/APAP (5/325) TAB GTB SCH ×4 (03:26→15:07)
[2016-09-21] MEDS: VANCOMYCIN 1.25 GM in SOD CHLORIDE 0.9% 250 ML IVPB SCH ×2 (03:26→15:32)
[2016-09-21] MEDS: SODIUM HYPOCHLORITE 0.125% 473 ML BTL IRR SCH ×3 (03:27→20:27)
[2016-09-21] MEDS: NIFEdipine 10 MG CAP GTB SCH ×5 (03:27→20:26)
[2016-09-21 06:23] LABS: ADD SCAN DIFF NO; BASOPHILS % 0.3 % (0.0-2.0); EOSINOPHILS # 0.6 10^3/ul (0.0-0.5); HEMATOCRIT 23.4 % (42.0-52.0); HEMOGLOBIN 7.4 g/dl (14.0-18.0); LYMPHOCYTES # 1.3 10^3/ul (0.8-2.9); LYMPHOCYTES % 14.1 % (15.0-51.0); MEAN CORPUSCULAR HEMOGLOBIN 32.2 pg (29.0-33.0); MEAN CORPUSCULAR HGB CONC 31.6 g/dl (32.0-37.0); MEAN CORPUSCULAR VOLUME 101.7 fl (82.0-101.0); MEAN PLATELET VOLUME 9.6 fl (7.4-10.4); MONOCYTE # 0.8 10^3/ul (0.3-0.9); MONOCYTES % 8.7 % (0.0-11.0); NEUTROPHIL # 6.4 10^3/ul (1.6-7.5); NEUTROPHILS % 69.7 % (39.0-77.0); PLATELET COUNT 401 10^3/UL (140-415); RED CELL DISTRIBUTION WIDTH 14.8 % (11.5-14.5); WHITE BLOOD COUNT 9.2 10^3/ul (4.8-10.8)
[2016-09-21 06:48] LABS: CREATININE 0.68 mg/dl (0.61-1.24)
[2016-09-21 06:49] LABS: CALCIUM 9.7 mg/dl (8.4-10.2)
[2016-09-21] MEDS: MULTIVITAMINS 5 ML CUP GTB SCH (10:07)
[2016-09-21] MEDS: FUROSEMIDE 40 MG/4 ML CUP GTB SCH (10:07)
[2016-09-21] MEDS: BISACODYL 10 MG SUPP PR SCH (10:07)
[2016-09-21] MEDS: ZINC SULFATE 220 MG CAP GTB SCH (10:07)
[2016-09-21] MEDS: LABETALOL 100 MG TAB GTB SCH ×2 (10:08→20:25)
[2016-09-21] MEDS: PROPRANOLOL 20 MG TAB GTB SCH (10:09)
[2016-09-21] MEDS: LEVETIRACETAM 750 MG TAB GTB SCH ×2 (10:09→20:31)
[2016-09-21] MEDS: FERROUS SULFATE (EC) 325 MG TAB PO SCH ×3 (10:09→20:25)
[2016-09-21] MEDS: SODIUM CHLORIDE 1 GM TAB GTB SCH ×2 (10:09→20:25)
[2016-09-21] MEDS: ASCORBIC ACID 500 MG TAB GTB SCH (10:11)
[2016-09-21] MEDS: CEFEPIME 2GM/50 ML (PMX) 50 ML IVPB SCH ×2 (10:14→23:46)
[2016-09-21] MEDS: COLLAGENASE 30 GM TUBE TOP SCH (10:15)
[2016-09-21] MEDS: ENOXAPARIN 80 MG/0.8 ML SYG SC SCH ×2 (10:18→20:45)
[2016-09-21] MEDS: SOD CHLORIDE 0.9% 1,000 ML IV SCH (12:12)
--- NOTE | 2016-09-21 12:36 | PN ---
Date/Time of Note Date/Time of Note DATE: 09/21/16 TIME: 12:32 Assessment/Plan VTE Prophylaxis VTE Prophylaxis Intervention: LMWH Lines/Catheters [facility] PICC Line Central line still needed: Yes Urinary Cath still in place: No Assessment/Plan Chief Complaint/Hosp Course Assessment/Plan 1) Sepsis due to infected decubitus ulcers Continue broad-spectrum antibiotics: Vanco and Cefipime 2) Left lower lobe pneumonia Continue antibiotics as above 3) Sacral decubitus ulcer, stage IV Follow-up wound cultures Wound Care Consult, Air Mattress, general surgeon consulted 4) Normocytic anemia, Anemia of Chronic Disease vs Iron Deficiency vs. Blood Loss, vs ? Continue to monitor 5) Acute cystitis with yeast Continue fluconazole 6) Ventilator dependent Continue current settings. Pantry Goods Maker been consulted We will continue monitor patient closely for recommendation management treatment as clinical course Problems: Subjective 24 Hr Interval Summary Free Text/Dictation No acute changes Patient is tolerating PEG tube feeding Was seen and evaluated by wound care and has suggested for surgical evaluation for sacral decubitus Exam/Review of Systems Vital Signs Vitals Vital Signs Date Time Temp Pulse Resp B/P Pulse Ox O2 Delivery O2 Flow Rate FiO2 09/21/16 11:58 99.1 94 24 101/58 100 09/21/16 11:10 35 09/20/16 10:54 Mechanical Ventilator 09/20/16 06:45 15.0 Intake and Output 09/20/16 09/20/16 09/21/16 15:00 23:00 07:00 Intake Total 1000 ml 1370 ml Output Total 2000 ml 350 ml 850 ml Balance -2000 ml 650 ml 520 ml Exam General: The patient is bedbound, Not in acute distress. HEENT: Atraumatic, . The pupils are equal and round . Neck: Trach in place Chest: Normal expansion of the thorax during inspiration Lungs: Clear to auscultation bilaterally Heart: Normal S1-S2, Regular rhythm and rate. Abdomen: Soft , nontender, nondistended , bowel sounds are present. PEG tube in place Extremities: Severe bilateral upper and lower extremity muscle wasting with contracture of lower extremity, no edema no cyanosis Neurologic: Patient is arousable,The patient is awake, alert Skin: Stage III sacral decubitus Results Result Diagram: 09/21/16 0545 09/21/1645 Results 24 hrs Laboratory Tests Test 09/21/16 05:45 Anion Gap 14 Basophils # 0.0 Basophils % 0.3 Blood Urea Nitrogen 22 H Calcium Level 9.7 Carbon Dioxide Level 28 Chloride Level 104 Creatinine 0.68 Eosinophils # 0.6 H Eosinophils % 6.0 Glucose Level 107 Hematocrit 23.4 L Hemoglobin 7.4 L Lymphocytes # 1.3 Lymphocytes % 14.1 L Magnesium Level 2.0 Mean Corpuscular Hemoglobin 32.2 Mean Corpuscular Hemoglobin Concent 31.6 L Mean Corpuscular Volume 101.7 H Mean Platelet Volume 9.6 Monocytes # 0.8 Monocytes % 8.7 Neutrophils # 6.4 Neutrophils % 69.7 Nucleated Red Blood Cells # 0.0 Nucleated Red Blood Cells % 0.0 Platelet Count 401 Potassium Level 4.0 Red Blood Count 2.30 L Red Cell Distribution Width 14.8 H Sodium Level 142 White Blood Count 9.2 # Medications Medications Current Medications Acetaminophen (Tylenol Tab) 650 mg Q6H PRN GTB MILD PAIN -10/21; Start 09/19/16 at 20:30 Ascorbic Acid (Vitamin C) 500 mg DAILY GTB Last administered on 09/21/16 10:11 ; Admin Dose 500 MG; Start 09/20/16 at 09:00 Bisacodyl (Dulcolax Supp) 10 mg DAILY ME Last administered on 09/21/16 10:07; Admin Dose 10 MG; Start 09/20/16 at 09:00 Enoxaparin Sodium (Lovenox) 70 mg Q12 SC Last administered on 09/21/16 10:18; Admin Dose 70 MG; Start 09/19/16 at 21:00 Ferrous Sulfate (Ferrous Sulfate (Ec)) 325 mg TID PO Last administered on 10:09; Admin Dose 325 MG; Start 09/19/16 at 21:00 Furosemide (Lasix) 40 mg QAM GTB Last administered on 09/21/16 10:07; Admin Dose 40 MG; Start 09/20/16 at 09:00 Hydralazine HCl (Apresoline) 10 mg QID PRN GTB HTN; Start 09/19/16 at 20:30 Acetaminophen/ Hydrocodone Bitart ([place] (5/325)) 1 tab Q4H GTB Last administered on 09/21/16 10:20; Admin Dose 1 TAB; Start 09/19/16 at 22:15 Labetalol HCl (Normodyne) 100 mg BID GTB Last administered on 09/21/16 10:08; Admin Dose 100 MG; Start 09/19/16 at 21:00 Levetiracetam (Keppra) 750 mg BID GTB Last administered on 09/21/16 10:09; Admin Dose 750 MG; Start 09/19/16 at 21:00 Lorazepam (Ativan) 0.5 mg Q6 PRN GTB ANXIETY; Start 09/19/16 at 20:30 Propranolol HCl (Inderal) 20 mg TID GTB Last administered on 09/21/16 10:09; Admin Dose 20 MG; Start 09/19/16 at 22:15 Sodium Biphosphate/ Sodium Phosphate (Fleet Enema Pediatric) 66.6 ml Q3D PRN [place] CONSTIPATION; Start 09/19/16 at 20:30 Sodium Chloride (Nacl) 1 gm BID GTB Last administered on 09/21/16 10:09; Admin Dose 1 GM; Start 09/19/16 at 21:00 Zinc Sulfate (Zinc Sulfate) 220 mg DAILY GTB Last administered on 09/21/16 10: 07; Admin Dose 220 MG; Start 09/20/16 at 09:00 Multivitamins 5 ml 5 ml DAILY GTB Last administered on 09/21/16 10:07; Admin Dose 5 ML; Start 09/20/16 at 09:00 Sodium Chloride (NS) 1,000 ml @ 50 mls/hr Q20H IV Last administered on 15:30; Admin Dose 50 MLS/HR; Start 09/19/16 at 20:12 Nitroglycerin (Nitroglycerin (Sl Tab) 0.4 Mg) 1 tab Q5M PRN SL CHEST PAIN; Start 09/19/16 at 20:30 Collagenase (Santyl) 1 applic DAILY TOP Last administered on 09/21/16 10:15; Admin Dose 1 APPLIC; Start 09/20/16 at 16:00 Sodium Hypochlorite 1 applic 1 applic BID IRR Last administered on 09/21/16 10 :11; Admin Dose 1 APPLIC; Start 09/20/16 at 16:00 Vancomycin HCl 1.25 gm/Sodium Chloride 250 ml @ 83.333 mls/ hr Q12H IVPB Last administered on 09/21/16 03:26; Admin Dose 83.333 MLS/HR; Start 09/21/16 at 04: 00 Fluconazole 200 ml @ 200 mls/hr Q24H IVPB Last administered on 09/20/16 18:34 ; Admin Dose 200 MLS/HR; Start 09/20/16 at 18:30 Cefepime HCl (Maxipime 2gm/50 ml (Pmx)) 50 ml @ 100 mls/hr Q12 IVPB Last administered on 09/21/16 10:14; Admin Dose 100 MLS/HR; Start 09/20/16 at 21:00 Miscellaneous Information (*Rx Drug Level Order Reminder*) VANCOMYCIN TROUGH AT 0300 ONCE ONCE XX ; Start 09/22/16 at 03:00; Stop 09/22/16 at 03:01 Nifedipine (Procardia) 20 mg BID GTB ; Start 09/21/16 at 21:00 RAMANDEEP DYKES MD Sep 21, 2016 12:35
[2016-09-21] MEDS: FLUCONAZOLE 400 MG/NS (PMX) 200 ML IVPB SCH (22:02)
[2016-09-22] VITALS (24 sets, daily range): BP systolic 98–120; BP diastolic 56–71; PULSE 92–98; RESP 15–25
[2016-09-22] MEDS: HYDROCODONE/APAP (5/325) TAB GTB SCH ×6 (02:15→23:19)
--- NOTE | 2016-09-22 03:30 | CONS ---
DATE OF ADMISSION: 09/19/2016 DATE OF CONSULTATION: 09/21/2016 TYPE OF CONSULTATION: Surgical. REFERRING PHYSICIAN: Jonathan Angulo MD CHIEF COMPLAINT: 1. Large sacral decubitus ulcer, stage IV. 2. Pneumonia. 3. Right trochanteric ulcer. 4. Mid low back decubitus ulcer. 5. Leukocytosis. 6. Hypoalbuminemia. HISTORY OF PRESENT ILLNESS: Desirae Cai is a 65-year-old male with multiple significant comorbid ities who was initially admitted with wounds and tachycardia concerning for infection. He was found to have pneumonia and possible infected wounds and was admitted for further care and treatment. Th ere were no reported fevers or chills. No cough. No seizure. No blood per mouth or rectum. No py uria. No bloating. No rashes. No jaundice. The patient is unable to give any information. Surgi prasanna consult is obtained for further evaluation and treatment. PAST MEDICAL HISTORY: 1. Multiple decubitus ulcerations. 2. History of sepsis and shock. 3. Pneumonia. 4. C. diff history 5. Ventilator dependent respiratory failure. 6. Seizure disorder. 7. ____ syndrome. 8. Dysphagia. 9. History of fall and brain injury. 10. Hydrocephalus. 11. Intracranial hemorrhage history 12. Contractions. 13. Hypoalbuminemia. 14. Anemia. 15. Leukocytosis. 16. Thrombocytosis. 17. Urinary tract infection. PAST SURGICAL HISTORY: 1. PEG. 2. Trach. MEDICATIONS: As per SEP. ALLERGIES: NONE NOTED. SOCIAL HISTORY: No current alcohol, drugs, or tobacco. FAMILY HISTORY: Noncontributory. REVIEW OF SYSTEMS: A 12-point review of systems negative unless undressed in HPI. PHYSICAL EXAMINATION: VITAL SIGNS: Temperature is 99.1, pulse 80s to 90s, blood pressure 101/58. GENERAL: Noncommunicative. HEENT: Pupils are reactive. No scleral icterus. Mucous membranes somewhat dry. NECK: No crepitus. Trach present. No JVD. PULMONARY: Normal respiratory effort. No wheezing. HEART: S1, S2 present. ABDOMEN: Soft. PEG in place. EXTREMITIES: Contraction. VASCULAR: Capillary refill is 3 seconds. NEUROLOGIC: Does not follow commands. SKIN: No rashes, no jaundice. Multiple decubitus of the trochanter, sacrococcyx, low back, and oth er areas with debris. No purulence. No odor. LABORATORY AND RADIOGRAPHIC DATA: As per chart. ASSESSMENT AND PLAN: Desirae Cai is a 65-year-old male with multiple significant comorbidities. 1. Sacrococcygeal stage IV decubitus ulcer. Continue off-loading, optimize nutrition, vitamin C, l ocal care, and debridement as needed. 2. Trochanteric decubitus ulcer, as above. 3. Low back decubitus ulcer, as above. 4. Hypoalbuminemia. He will benefit from nutritional optimization. 5. Dysphagia on tube feeds. 6. Anemia without evidence of acute blood loss. Continue close observation. 7. Urinary tract infection. Continue antibiotics. 8. Possible pneumonia. Continue pulmonary toilet, ventilator management, and antibiotics. 9. Leukocytosis secondary to above, status post antibiotic, resolved. 10. Brain injury with hemorrhage and encephalopathy. Continue medical optimization, nutritional op timization, and offloading. Thank you very much for consulting me in this patient's care. Dictated By: ELGIN ANSARI/MINISTERIO Conf#: [id number] DID#: [id number]
[2016-09-22] MEDS: VANCOMYCIN 1.25 GM in SOD CHLORIDE 0.9% 250 ML IVPB SCH (04:00)
[2016-09-22 04:05] LABS: ADD SCAN DIFF NO
[2016-09-22 04:12] LABS: BASOPHILS % 0.2 % (0.0-2.0); EOSINOPHILS # 0.8 10^3/ul (0.0-0.5); EOSINOPHILS % 9.2 % (0.0-7.0); HEMATOCRIT 25.1 % (42.0-52.0); LYMPHOCYTES # 1.4 10^3/ul (0.8-2.9); LYMPHOCYTES % 15.8 % (15.0-51.0); MEAN CORPUSCULAR HEMOGLOBIN 32.1 pg (29.0-33.0); MEAN CORPUSCULAR HGB CONC 31.9 g/dl (32.0-37.0); MEAN CORPUSCULAR VOLUME 100.8 fl (82.0-101.0); MEAN PLATELET VOLUME 9.3 fl (7.4-10.4); MONOCYTE # 0.8 10^3/ul (0.3-0.9); MONOCYTES % 8.7 % (0.0-11.0); NEUTROPHIL # 5.6 10^3/ul (1.6-7.5); NEUTROPHILS % 65.3 % (39.0-77.0); PLATELET COUNT 367 10^3/UL (140-415); RED BLOOD COUNT 2.49 10^6/ul (4.70-6.10); RED CELL DISTRIBUTION WIDTH 15.2 % (11.5-14.5); WHITE BLOOD COUNT 8.6 10^3/ul (4.8-10.8)
[2016-09-22 04:23] LABS: POTASSIUM 3.8 mmol/L (3.5-5.1)
[2016-09-22 04:26] LABS: CREATININE 0.65 mg/dl (0.61-1.24)
[2016-09-22 04:27] LABS: CALCIUM 9.9 mg/dl (8.4-10.2)
[2016-09-22] MEDS: SOD CHLORIDE 0.9% 1,000 ML IV SCH (05:48)
[2016-09-22] MEDS ORDERED: VANCOMYCIN 1 GM in NS 250 ML IVPB SCH (09:00)
[2016-09-22] MEDS: BISACODYL 10 MG SUPP PR SCH (10:32)
[2016-09-22] MEDS: CEFEPIME 2GM/50 ML (PMX) 50 ML IVPB SCH ×2 (10:32→23:19)
[2016-09-22] MEDS: MULTIVITAMINS 5 ML CUP GTB SCH (10:32)
[2016-09-22] MEDS: NIFEdipine 10 MG CAP GTB SCH ×2 (10:32→21:58)
[2016-09-22] MEDS: LABETALOL 100 MG TAB GTB SCH ×2 (10:33→21:59)
[2016-09-22] MEDS: ZINC SULFATE 220 MG CAP GTB SCH (10:33)
[2016-09-22] MEDS: SODIUM CHLORIDE 1 GM TAB GTB SCH ×2 (10:33→21:57)
[2016-09-22] MEDS: FUROSEMIDE 40 MG/4 ML CUP GTB SCH (10:33)
[2016-09-22] MEDS: FERROUS SULFATE (EC) 325 MG TAB PO SCH ×3 (10:33→21:57)
[2016-09-22] MEDS: LEVETIRACETAM 750 MG TAB GTB SCH ×2 (10:34→21:58)
[2016-09-22] MEDS: ASCORBIC ACID 500 MG TAB GTB SCH (10:34)
[2016-09-22] MEDS: COLLAGENASE 30 GM TUBE TOP SCH (10:35)
[2016-09-22] MEDS: SODIUM HYPOCHLORITE 0.125% 473 ML BTL IRR SCH ×2 (10:35→21:00)
[2016-09-22] MEDS: ENOXAPARIN 80 MG/0.8 ML SYG SC SCH (10:44)
--- NOTE | 2016-09-22 12:21 | PN ---
Date/Time of Note Date/Time of Note DATE: 09/22/16 TIME: 12:08 Assessment/Plan VTE Prophylaxis VTE Prophylaxis Intervention: LMWH Lines/Catheters IV Catheter Type (from Nrs): PICC Line Central line still needed: Yes Urinary Cath still in place: No Assessment/Plan Chief Complaint/Hosp Course Assessment/Plan 1) Sepsis due to infected decubitus ulcers Continue broad-spectrum antibiotics: Vanco and Cefipime 2) Left lower lobe pneumonia Continue antibiotics as above 3) Sacral decubitus ulcer, stage IV Follow-up wound cultures Wound Care Consult, Air Mattress, general surgeon consulted 4) Normocytic anemia, Anemia of Chronic Disease vs Iron Deficiency vs. Blood Loss Continue to monitor, stable 5) Acute cystitis with yeast Continue fluconazole 6) Ventilator dependent Continue current settings. Star Route Mail Driver been consulted 7) dysphagia Continue PEG tube feeding 8) history of intracranial hemorrhage and craniotomy with facial fractures No acute issues at this time We will continue monitor patient closely for recommendation management treatment as clinical course Problems: Subjective 24 Hr Interval Summary Free Text/Dictation Patient is more awake and alert Vent/trach dependent Tolerating PEG tube feeding Exam/Review of Systems Vital Signs Vitals Vital Signs Date Time Temp Pulse Resp B/P Pulse Ox O2 Delivery O2 Flow Rate FiO2 09/22/16 11:31 98.0 92 19 102/56 96 09/22/16 09:15 35 09/21/16 20:20 Mechanical Ventilator 09/20/16 06:45 15.0 Intake and Output 09/21/16 09/21/16 09/22/16 15:00 23:00 07:00 Intake Total 1390 ml 1111 ml Output Total 1000 ml 200 ml Balance 390 ml 911 ml Exam General: The patient is bedridden, Not in acute distress. HEENT: Atraumatic, normocephalic. The pupils are equal and round . Neck: Trach in place Chest: Normal expansion of the thorax during inspiration Lungs: Clear to auscultation bilaterally Heart: Normal S1-S2, Regular rhythm and rate. Abdomen: Soft , nontender, nondistended , bowel sounds are present. PEG tube in place Extremities: Flaccid bilateral lower extremities no edema no cyanosis Neurologic:The patient is awake, alert. Results Result Diagram: 09/22/16 0356 09/22/16 0356 Results 24 hrs Laboratory Tests Test 09/22/16 03:56 Anion Gap 15 Basophils # 0.0 Basophils % 0.2 Blood Urea Nitrogen 17 Calcium Level 9.9 Carbon Dioxide Level 27 Chloride Level 105 Creatinine 0.65 Eosinophils # 0.8 H Eosinophils % 9.2 H Glucose Level 103 Hematocrit 25.1 L Hemoglobin 8.0 L Lymphocytes # 1.4 Lymphocytes % 15.8 Mean Corpuscular Hemoglobin 32.1 Mean Corpuscular Hemoglobin Concent 31.9 L Mean Corpuscular Volume 100.8 Mean Platelet Volume 9.3 Monocytes # 0.8 Monocytes % 8.7 Neutrophils # 5.6 Neutrophils % 65.3 Nucleated Red Blood Cells # 0.0 Nucleated Red Blood Cells % 0.0 Platelet Count 367 Potassium Level 3.8 Red Blood Count 2.49 L Red Cell Distribution Width 15.2 H Sodium Level 143 Vancomycin Level Trough 25.9 *H White Blood Count 8.6 Medications Medications Current Medications Acetaminophen (Tylenol Tab) 650 mg Q6H PRN GTB MILD PAIN -10/21; Start 09/19/16 at 20:30 Ascorbic Acid (Vitamin C) 500 mg DAILY GTB Last administered on 09/22/16 10:34 ; Admin Dose 500 MG; Start 09/20/16 at 09:00 Bisacodyl (Dulcolax Supp) 10 mg DAILY NE Last administered on 09/22/16 10:32; Admin Dose 10 MG; Start 09/20/16 at 09:00 Enoxaparin Sodium (Lovenox) 70 mg Q12 SC Last administered on 09/22/16 10:44; Admin Dose 70 MG; Start 09/19/16 at 21:00 Ferrous Sulfate (Ferrous Sulfate (Ec)) 325 mg TID PO Last administered on 10:33; Admin Dose 325 MG; Start 09/19/16 at 21:00 Furosemide (Lasix) 40 mg QAM GTB Last administered on 09/22/16 10:33; Admin Dose 40 MG; Start 09/20/16 at 09:00 Hydralazine HCl (Apresoline) 10 mg QID PRN GTB HTN; Start 09/19/16 at 20:30 Acetaminophen/ Hydrocodone Bitart ([place] (5/325)) 1 tab Q4H GTB Last administered on 09/22/16 10:34; Admin Dose 1 TAB; Start 09/19/16 at 22:15 Labetalol HCl (Normodyne) 100 mg BID GTB Last administered on 09/22/16 10:33; Admin Dose 100 MG; Start 09/19/16 at 21:00 Levetiracetam (Keppra) 750 mg BID GTB Last administered on 09/22/16 10:34; Admin Dose 750 MG; Start 09/19/16 at 21:00 Lorazepam (Ativan) 0.5 mg Q6 PRN GTB ANXIETY; Start 09/19/16 at 20:30 Sodium Biphosphate/ Sodium Phosphate (Fleet Enema Pediatric) 66.6 ml Q3D PRN [place] CONSTIPATION; Start 09/19/16 at 20:30 Sodium Chloride (Nacl) 1 gm BID GTB Last administered on 09/22/16 10:33; Admin Dose 1 GM; Start 09/19/16 at 21:00 Zinc Sulfate (Zinc Sulfate) 220 mg DAILY GTB Last administered on 09/22/16 10: 33; Admin Dose 220 MG; Start 09/20/16 at 09:00 Multivitamins 5 ml 5 ml DAILY GTB Last administered on 09/22/16 10:32; Admin Dose 5 ML; Start 09/20/16 at 09:00 Sodium Chloride (NS) 1,000 ml @ 50 mls/hr Q20H IV Last administered on 05:48; Admin Dose 50 MLS/HR; Start 09/19/16 at 20:12 Nitroglycerin (Nitroglycerin (Sl Tab) 0.4 Mg) 1 tab Q5M PRN SL CHEST PAIN; Start 09/19/16 at 20:30 Collagenase (Santyl) 1 applic DAILY TOP Last administered on 09/22/16 10:35; Admin Dose 1 APPLIC; Start 09/20/16 at 16:00 Sodium Hypochlorite 1 applic 1 applic BID IRR Last administered on 09/22/16 10 :35; Admin Dose 1 APPLIC; Start 09/20/16 at 16:00 Fluconazole 200 ml @ 200 mls/hr Q24H IVPB Last administered on 09/21/16 22:02 ; Admin Dose 200 MLS/HR; Start 09/20/16 at 18:30 Cefepime HCl (Maxipime 2gm/50 ml (Pmx)) 50 ml @ 100 mls/hr Q12 IVPB Last administered on 09/22/16 10:32; Admin Dose 100 MLS/HR; Start 09/20/16 at 21:00 Nifedipine 20 mg 20 mg BID GTB Last administered on 09/22/16 10:32; Admin Dose 20 MG; Start 09/21/16 at 21:00 Vancomycin HCl/ Sodium Chloride (Vancocin/NS) 250 ml @ 83.333 mls/ hr Q24H IVPB ; Start 09/22/16 at 12:00 RAMANDEEP DYKES MD Sep 22, 2016 12:21
[2016-09-22] MEDS: VANCOMYCIN 1.5 GM in SOD CHLORIDE 0.9% 250 ML IVPB SCH (12:35)
--- NOTE | 2016-09-22 14:32 | CONS ---
Date/Time of Note Date/Time of Note DATE: 09/22/16 TIME: 14:29 Assessment/Plan Assessment/Plan Additional Assessment/Plan Ventilator settings; AC of 18, tidal volume 500, PEEP of 5, 35% FiO2. Next Assessment recommendations; 1. Patient admitted for UTI and sepsis with improvement. 2. Anoxic brain injury. 3. Chronic respiratory failure. 4. Stable seizure disorder. 5. Stable hypertension. 6. Sacral decubitus ulcer. Continue current treatment. Prognosis remains poor. Consultation Date/Type/Reason Admit Date/Time Sep 19, 2016 at 19:30 Initial Consult Date 09/20/16 Type of Consultation: Pulmonary 24 HR Interval Summary Free Text/Dictation Patient condition remains stable. Remains hemodynamically stable. Due to anoxic brain injury patient remains completely unresponsive. General exam; elderly male, on ventilator via tracheostomy currently in no distress. Unresponsive. Exam/Review of Systems Vital Signs Vitals Vital Signs Date Time Temp Pulse Resp B/P Pulse Ox O2 Delivery O2 Flow Rate FiO2 09/22/16 13:30 100 19 98 35 09/22/16 11:31 98.0 102/56 09/21/16 20:20 Mechanical Ventilator 09/20/16 06:45 15.0 Intake and Output 09/21/16 09/21/16 09/22/16 15:00 23:00 07:00 Intake Total 1390 ml 1111 ml Output Total 1000 ml 200 ml Balance 390 ml 911 ml Exam HEENT exam; supple neck, no JVD. No lymphadenopathy. Midline trachea. Tracheostomy in place with clean insertion site. There is a well-healed frontal craniotomy scar. Chest examination; diminished but clear breath sounds bilaterally. S1-S2 audible, no murmurs. Regular rhythm. Abdomen examination; soft, nondistended. G-tube in place. Bowel sounds audible. No organomegaly. Extremity exam is; no peripheral edema. DONOR SERVICES TECHNICIAN examination; patient remains unresponsive. Results Result Diagram: 09/22/16 0356 09/22/16 0356 Results 24 hrs Laboratory Tests Test 09/22/16 03:56 Anion Gap 15 Basophils # 0.0 Basophils % 0.2 Blood Urea Nitrogen 17 Calcium Level 9.9 Carbon Dioxide Level 27 Chloride Level 105 Creatinine 0.65 Eosinophils # 0.8 H Eosinophils % 9.2 H Glucose Level 103 Hematocrit 25.1 L Hemoglobin 8.0 L Lymphocytes # 1.4 Lymphocytes % 15.8 Mean Corpuscular Hemoglobin 32.1 Mean Corpuscular Hemoglobin Concent 31.9 L Mean Corpuscular Volume 100.8 Mean Platelet Volume 9.3 Monocytes # 0.8 Monocytes % 8.7 Neutrophils # 5.6 Neutrophils % 65.3 Nucleated Red Blood Cells # 0.0 Nucleated Red Blood Cells % 0.0 Platelet Count 367 Potassium Level 3.8 Red Blood Count 2.49 L Red Cell Distribution Width 15.2 H Sodium Level 143 Vancomycin Level Trough 25.9 *H White Blood Count 8.6 Medications Medications Current Medications Acetaminophen (Tylenol Tab) 650 mg Q6H PRN GTB MILD PAIN -10/21; Start 09/19/16 at 20:30 Ascorbic Acid (Vitamin C) 500 mg DAILY GTB Last administered on 09/22/16 10:34 ; Admin Dose 500 MG; Start 09/20/16 at 09:00 Bisacodyl (Dulcolax Supp) 10 mg DAILY NV Last administered on 09/22/16 10:32; Admin Dose 10 MG; Start 09/20/16 at 09:00 Ferrous Sulfate (Ferrous Sulfate (Ec)) 325 mg TID PO Last administered on 12:35; Admin Dose 325 MG; Start 09/19/16 at 21:00 Furosemide (Lasix) 40 mg QAM GTB Last administered on 09/22/16 10:33; Admin Dose 40 MG; Start 09/20/16 at 09:00 Hydralazine HCl (Apresoline) 10 mg QID PRN GTB HTN; Start 09/19/16 at 20:30 Acetaminophen/ Hydrocodone Bitart (Blum (5/325)) 1 tab Q4H GTB Last administered on 09/22/16 10:34; Admin Dose 1 TAB; Start 09/19/16 at 22:15 Labetalol HCl (Normodyne) 100 mg BID GTB Last administered on 09/22/16 10:33; Admin Dose 100 MG; Start 09/19/16 at 21:00 Levetiracetam (Keppra) 750 mg BID GTB Last administered on 09/22/16 10:34; Admin Dose 750 MG; Start 09/19/16 at 21:00 Lorazepam (Ativan) 0.5 mg Q6 PRN GTB ANXIETY; Start 09/19/16 at 20:30 Sodium Biphosphate/ Sodium Phosphate (Fleet Enema Pediatric) 66.6 ml Q3D PRN [place] CONSTIPATION; Start 09/19/16 at 20:30 Sodium Chloride (Nacl) 1 gm BID GTB Last administered on 09/22/16 10:33; Admin Dose 1 GM; Start 09/19/16 at 21:00 Zinc Sulfate (Zinc Sulfate) 220 mg DAILY GTB Last administered on 09/22/16 10: 33; Admin Dose 220 MG; Start 09/20/16 at 09:00 Multivitamins 5 ml 5 ml DAILY GTB Last administered on 09/22/16 10:32; Admin Dose 5 ML; Start 09/20/16 at 09:00 Sodium Chloride (NS) 1,000 ml @ 50 mls/hr Q20H IV Last administered on 05:48; Admin Dose 50 MLS/HR; Start 09/19/16 at 20:12 Nitroglycerin (Nitroglycerin (Sl Tab) 0.4 Mg) 1 tab Q5M PRN SL CHEST PAIN; Start 09/19/16 at 20:30 Collagenase (Santyl) 1 applic DAILY TOP Last administered on 09/22/16 10:35; Admin Dose 1 APPLIC; Start 09/20/16 at 16:00 Sodium Hypochlorite 1 applic 1 applic BID IRR Last administered on 09/22/16 10 :35; Admin Dose 1 APPLIC; Start 09/20/16 at 16:00 Fluconazole 200 ml @ 200 mls/hr Q24H IVPB Last administered on 09/21/16 22:02 ; Admin Dose 200 MLS/HR; Start 09/20/16 at 18:30 Cefepime HCl (Maxipime 2gm/50 ml (Pmx)) 50 ml @ 100 mls/hr Q12 IVPB Last administered on 09/22/16 10:32; Admin Dose 100 MLS/HR; Start 09/20/16 at 21:00 Nifedipine 20 mg 20 mg BID GTB Last administered on 09/22/16 10:32; Admin Dose 20 MG; Start 09/21/16 at 21:00 Vancomycin HCl/ Sodium Chloride (Vancocin/NS) 250 ml @ 83.333 mls/ hr Q24H IVPB Last administered on 3/12/17at 12:35; Admin Dose 83.333 MLS/HR; Start 06/29 at 12:00 Enoxaparin Sodium (Lovenox) 30 mg DAILY SC ; Start 09/23/16 at 09:00 MARTIR CURRIE 12, 2017 14:32
[2016-09-22] MEDS: FLUCONAZOLE 400 MG/NS (PMX) 200 ML IVPB SCH (17:47)
--- NOTE | 2016-09-22 18:02 | PN ---
Date/Time of Note Date/Time of Note DATE: 09/22/16 TIME: 17:59 Assessment/Plan Lines/Catheters IV Catheter Type (from [facility]): PICC Line Ferrari in Place (from [facility]): No Assessment/Plan Chief Complaint/Hosp Course 1. Sacrococcygeal stage IV decubitus ulcer. -off-loading -optimize nutrition -vitamin C -local care -debridement as needed. 2. Trochanteric decubitus ulcer -as above. 3. Low back decubitus ulcer -as above. 4. Hypoalbuminemia. He will benefit from nutritional optimization. 5. Dysphagia on tube feeds. 6. Anemia without evidence of acute blood loss. Continue close observation. 7. Urinary tract infection. Continue antibiotics. 8. Possible pneumonia. Continue pulmonary toilet, ventilator management, and antibiotics. 9. Leukocytosis secondary to above, status post antibiotic, resolved. 10. Brain injury with hemorrhage and encephalopathy. Continue medical optimization, nutritional optimization, and offloading. Thank you Problems: Subjective 24 Hr Interval Summary No f/c. No n/v. No cough. No sz. No rash. No pyuria. No bloating. No blood per mouth or rectum. Wounds. Exam/Review of Systems Vital Signs Vitals Vital Signs Date Time Temp Pulse Resp B/P Pulse Ox O2 Delivery O2 Flow Rate FiO2 09/22/16 16:23 92 09/22/16 15:50 98.1 18 115/69 97 09/22/16 15:10 35 09/21/16 20:20 Mechanical Ventilator 09/20/16 06:45 15.0 Intake and Output 09/21/16 09/21/16 09/22/16 15:00 23:00 07:00 Intake Total 1390 ml 1111 ml Output Total 1000 ml 200 ml Balance 390 ml 911 ml Exam Free Text/Dictation GENERAL: Noncommunicative. HEENT: Pupils are reactive. No scleral icterus. Mucous membranes somewhat dry. NECK: No crepitus. Trach present. No JVD. PULMONARY: Normal respiratory effort. No wheezing. HEART: S1, S2 present. ABDOMEN: Soft. PEG in place. EXTREMITIES: Contraction. VASCULAR: Capillary refill is 3 seconds. NEUROLOGIC: Does not follow commands. SKIN: No rashes, no jaundice. Multiple decubitus of the trochanter, sacrococcyx, low back, and other areas with debris. No purulence. No odor. Results Result Diagram: 09/22/16 0356 09/22/16 0356 ELGIN KELLER MD Sep 22, 2016 18:02
[2016-09-23] VITALS (24 sets, daily range): BP systolic 94–117; BP diastolic 53–70; PULSE 91–101; RESP 15–20
[2016-09-23] MEDS: HYDROCODONE/APAP (5/325) TAB GTB SCH ×6 (02:15→22:02)
[2016-09-23] MEDS: SOD CHLORIDE 0.9% 1,000 ML IV SCH (05:36)
[2016-09-23 07:06] LABS: ADD SCAN DIFF NO
[2016-09-23 07:14] LABS: BASOPHILS % 0.3 % (0.0-2.0); EOSINOPHILS % 12.7 % (0.0-7.0); HEMATOCRIT 28.4 % (42.0-52.0); LYMPHOCYTES # 1.4 10^3/ul (0.8-2.9); MEAN CORPUSCULAR HEMOGLOBIN 32.3 pg (29.0-33.0); MEAN CORPUSCULAR HGB CONC 31.7 g/dl (32.0-37.0); MEAN CORPUSCULAR VOLUME 101.8 fl (82.0-101.0); MEAN PLATELET VOLUME 9.5 fl (7.4-10.4); MONOCYTE # 0.7 10^3/ul (0.3-0.9); NEUTROPHIL # 4.6 10^3/ul (1.6-7.5); PLATELET COUNT 411 10^3/UL (140-415); RED BLOOD COUNT 2.79 10^6/ul (4.70-6.10); RED CELL DISTRIBUTION WIDTH 14.9 % (11.5-14.5); WHITE BLOOD COUNT 7.8 10^3/ul (4.8-10.8)
[2016-09-23 07:27] LABS: POTASSIUM 3.8 mmol/L (3.5-5.1)
[2016-09-23 07:30] LABS: CREATININE 0.66 mg/dl (0.61-1.24)
[2016-09-23 07:31] LABS: CALCIUM 10.3 mg/dl (8.4-10.2)
[2016-09-23] MEDS: NIFEdipine 10 MG CAP GTB SCH ×2 (09:00→21:00)
[2016-09-23] MEDS: CEFEPIME 2GM/50 ML (PMX) 50 ML IVPB SCH (11:02)
[2016-09-23] MEDS: SODIUM CHLORIDE 1 GM TAB GTB SCH ×2 (11:03→21:00)
[2016-09-23] MEDS: LEVETIRACETAM 750 MG TAB GTB SCH ×2 (11:03→21:59)
[2016-09-23] MEDS: FERROUS SULFATE (EC) 325 MG TAB PO SCH ×3 (11:03→21:00)
[2016-09-23] MEDS: LABETALOL 100 MG TAB GTB SCH ×2 (11:04→21:00)
[2016-09-23] MEDS: ASCORBIC ACID 500 MG TAB GTB SCH (11:04)
[2016-09-23] MEDS: ZINC SULFATE 220 MG CAP GTB SCH (11:04)
[2016-09-23] MEDS: FUROSEMIDE 40 MG/4 ML CUP GTB SCH (11:04)
[2016-09-23] MEDS: BISACODYL 10 MG SUPP PR SCH (11:04)
[2016-09-23] MEDS: SODIUM HYPOCHLORITE 0.125% 473 ML BTL IRR SCH ×2 (11:06→21:00)
[2016-09-23] MEDS: COLLAGENASE 30 GM TUBE TOP SCH (11:07)
[2016-09-23] MEDS: ENOXAPARIN 30 MG/0.3 ML SYG SC SCH (11:17)
--- NOTE | 2016-09-23 12:39 | PN ---
Date/Time of Note Date/Time of Note DATE: 09/23/16 TIME: 12:39 Assessment/Plan Lines/Catheters IV Catheter Type (from [facility]): PICC Line Ferrari in Place (from [facility]): Yes Assessment/Plan Chief Complaint/Hosp Course 1. Sacrococcygeal stage IV decubitus ulcer. -off-loading -optimize nutrition -vitamin C -local care -debridement as needed. 2. Trochanteric decubitus ulcer -as above. 3. Low back decubitus ulcer -as above. 4. Hypoalbuminemia. He will benefit from nutritional optimization. 5. Dysphagia on tube feeds. 6. Anemia without evidence of acute blood loss. Continue close observation. 7. Urinary tract infection. Continue antibiotics. 8. Possible pneumonia. Continue pulmonary toilet, ventilator management, and antibiotics. 9. Leukocytosis secondary to above, status post antibiotic, resolved. 10. Brain injury with hemorrhage and encephalopathy. Continue medical optimization, nutritional optimization, and offloading. Thank you Problems: Subjective 24 Hr Interval Summary No f/c. No n/v. No cough. No sz. No rash. No pyuria. No bloating. No blood per mouth or rectum. Wounds. Exam/Review of Systems Vital Signs Vitals Vital Signs Date Time Temp Pulse Resp B/P Pulse Ox O2 Delivery O2 Flow Rate FiO2 09/23/16 11:32 95 18 98 35 09/23/16 08:10 98.0 115/66 09/21/16 20:20 Mechanical Ventilator 09/20/16 06:45 15.0 Intake and Output 09/22/16 09/22/16 09/23/16 15:00 23:00 07:00 Intake Total 50 ml 1380 ml 780 ml Output Total 600 ml 1550 ml Balance 50 ml 780 ml -770 ml Exam Free Text/Dictation GENERAL: Noncommunicative. HEENT: Pupils are reactive. No scleral icterus. Mucous membranes somewhat dry. NECK: No crepitus. Trach present. No JVD. PULMONARY: Normal respiratory effort. No wheezing. HEART: S1, S2 present. ABDOMEN: Soft. PEG in place. EXTREMITIES: Contraction. VASCULAR: Capillary refill is 3 seconds. NEUROLOGIC: Does not follow commands. SKIN: No rashes, no jaundice. Multiple decubitus of the trochanter, sacrococcyx, low back, and other areas with debris. No purulence. No odor. Results Result Diagram: 09/23/16 0636 09/23/16 0636 ELGIN KELLER MD Sep 23, 2016 12:39
[2016-09-23] MEDS: VANCOMYCIN 1.5 GM in SOD CHLORIDE 0.9% 250 ML IVPB SCH (13:31)
--- NOTE | 2016-09-23 13:54 | PN ---
Date/Time of Note Date/Time of Note DATE: 09/23/16 TIME: 13:49 Assessment/Plan VTE Prophylaxis VTE Prophylaxis Intervention: LMWH Lines/Catheters IV Catheter Type (from [facility]): PICC Line Central line still needed: Yes Urinary Cath still in place: Yes Reason Cath still needed: other (indicate) Assessment/Plan Chief Complaint/Hosp Course Assessment/Plan 1) Sepsis due to infected decubitus ulcers Continue broad-spectrum antibiotics: Vanco and Cefipime 2) Left lower lobe pneumonia Continue antibiotics as above 3) Sacral decubitus ulcer, stage IV Follow-up wound cultures Wound Care Consult, Air Mattress, general surgeon consulted 4) Normocytic anemia, Anemia of Chronic Disease vs Iron Deficiency vs. Blood Loss Continue to monitor, stable 5) Acute cystitis with yeast Continue fluconazole 6) Ventilator dependent Continue current settings. Raw Stock Machine Feeder been consulted 7) SIRS with bacteremia Infectious disease doctor has been consulted, continue broad-spectrum IV antibiotics 8) urinary tract infection As above 9) dysphagia Continue PEG tube feeding 10) history of intracranial hemorrhage and craniotomy with facial fractures No acute issues at this time We will continue monitor patient closely for recommendation management treatment as clinical course Problems: Subjective 24 Hr Interval Summary Free Text/Dictation No acute changes Patient is aphasic Tolerating PEG tube feeding Exam/Review of Systems Vital Signs Vitals Vital Signs Date Time Temp Pulse Resp B/P Pulse Ox O2 Delivery O2 Flow Rate FiO2 09/23/16 13:04 98.2 99 18 113/63 98 09/23/16 11:32 35 09/21/16 20:20 Mechanical Ventilator 09/20/16 06:45 15.0 Intake and Output 09/22/16 09/22/16 09/23/16 15:00 23:00 07:00 Intake Total 50 ml 1380 ml 780 ml Output Total 600 ml 1550 ml Balance 50 ml 780 ml -770 ml Exam General: The patient is a phasic and not in acute distress. HEENT: Atraumatic, normocephalic. The pupils are equal and round . Neck: Trach in place Lungs: Clear to auscultation bilaterally Heart: Normal S1-S2, Regular rhythm and rate. Abdomen: Soft , nontender, nondistended , bowel sounds are present. PEG tube in place Extremities: Severe muscular atrophy bilateral lower extremities with contractures, no edema no cyanosis Neurologic:mental status at baseline,The patient is awake, Skin: Stage 3 sacral decubitus Results Result Diagram: 09/23/16 0636 09/23/16 0636 Results 24 hrs Laboratory Tests Test 09/23/16 06:36 Anion Gap 18 H Basophils # 0.0 Basophils % 0.3 Blood Urea Nitrogen 18 Calcium Level 10.3 H Carbon Dioxide Level 27 Chloride Level 103 Creatinine 0.66 Eosinophils # 1.0 H Eosinophils % 12.7 H Glucose Level 93 Hematocrit 28.4 L Hemoglobin 9.0 L Lymphocytes # 1.4 Lymphocytes % 18.0 Mean Corpuscular Hemoglobin 32.3 Mean Corpuscular Hemoglobin Concent 31.7 L Mean Corpuscular Volume 101.8 H Mean Platelet Volume 9.5 Monocytes # 0.7 Monocytes % 9.0 Neutrophils # 4.6 Neutrophils % 59.0 Nucleated Red Blood Cells # 0.0 Nucleated Red Blood Cells % 0.0 Platelet Count 411 Potassium Level 3.8 Red Blood Count 2.79 L Red Cell Distribution Width 14.9 H Sodium Level 144 White Blood Count 7.8 Medications Medications Current Medications Acetaminophen (Tylenol Tab) 650 mg Q6H PRN GTB MILD PAIN -10/21; Start 09/19/16 at 20:30 Ascorbic Acid (Vitamin C) 500 mg DAILY GTB Last administered on 09/23/16 11:04 ; Admin Dose 500 MG; Start 09/20/16 at 09:00 Bisacodyl (Dulcolax Supp) 10 mg DAILY RI Last administered on 09/23/16 11:04; Admin Dose 10 MG; Start 09/20/16 at 09:00 Ferrous Sulfate (Ferrous Sulfate (Ec)) 325 mg TID PO Last administered on 13:31; Admin Dose 325 MG; Start 09/19/16 at 21:00 Furosemide (Lasix) 40 mg QAM GTB Last administered on 09/23/16 11:04; Admin Dose 40 MG; Start 09/20/16 at 09:00 Hydralazine HCl (Apresoline) 10 mg QID PRN GTB HTN; Start 09/19/16 at 20:30 Acetaminophen/ Hydrocodone Bitart ([place] (5/325)) 1 tab Q4H GTB Last administered on 09/23/16 11:11; Admin Dose 1 TAB; Start 09/19/16 at 22:15 Labetalol HCl (Normodyne) 100 mg BID GTB Last administered on 09/23/16 11:04; Admin Dose 100 MG; Start 09/19/16 at 21:00 Levetiracetam (Keppra) 750 mg BID GTB Last administered on 09/23/16 11:03; Admin Dose 750 MG; Start 09/19/16 at 21:00 Lorazepam (Ativan) 0.5 mg Q6 PRN GTB ANXIETY; Start 09/19/16 at 20:30 Sodium Biphosphate/ Sodium Phosphate (Fleet Enema Pediatric) 66.6 ml Q3D PRN RI CONSTIPATION; Start 09/19/16 at 20:30 Sodium Chloride (Nacl) 1 gm BID GTB Last administered on 09/23/16 11:03; Admin Dose 1 GM; Start 09/19/16 at 21:00 Zinc Sulfate (Zinc Sulfate) 220 mg DAILY GTB Last administered on 09/23/16 11: 04; Admin Dose 220 MG; Start 09/20/16 at 09:00 Multivitamins 5 ml 5 ml DAILY GTB Last administered on 09/22/16 10:32; Admin Dose 5 ML; Start 09/20/16 at 09:00 Sodium Chloride (NS) 1,000 ml @ 50 mls/hr Q20H IV Last administered on 05:36; Admin Dose 50 MLS/HR; Start 09/19/16 at 20:12 Nitroglycerin (Nitroglycerin (Sl Tab) 0.4 Mg) 1 tab Q5M PRN SL CHEST PAIN; Start 09/19/16 at 20:30 Collagenase (Santyl) 1 applic DAILY TOP Last administered on 09/23/16 11:07; Admin Dose 1 APPLIC; Start 09/20/16 at 16:00 Sodium Hypochlorite 1 applic 1 applic BID IRR Last administered on 09/23/16 11 :06; Admin Dose 1 APPLIC; Start 09/20/16 at 16:00 Fluconazole 200 ml @ 200 mls/hr Q24H IVPB Last administered on 09/22/16 17:47 ; Admin Dose 200 MLS/HR; Start 09/20/16 at 18:30 Cefepime HCl (Maxipime 2gm/50 ml (Pmx)) 50 ml @ 100 mls/hr Q12 IVPB Last administered on 09/23/16 11:02; Admin Dose 100 MLS/HR; Start 09/20/16 at 21:00 Nifedipine 20 mg 20 mg BID GTB Last administered on 09/23/16 09:00; Admin Dose 20 MG; Start 09/21/16 at 21:00 Vancomycin HCl/ Sodium Chloride (Vancocin/NS) 250 ml @ 83.333 mls/ hr Q24H IVPB Last administered on 09/23/16 13:31; Admin Dose 83.333 MLS/HR; Start 06/29 at 12:00 Enoxaparin Sodium (Lovenox) 30 mg DAILY SC Last administered on 09/23/16 11:17 ; Admin Dose 30 MG; Start 09/23/16 at 09:00 RAMANDEEP DYKES MD Sep 23, 2016 13:54
--- NOTE | 2016-09-23 15:46 | CONS ---
DATE OF ADMISSION: 09/19/2016 DATE OF CONSULTATION: 09/23/2016 TYPE OF CONSULTATION: Infectious disease REASON FOR CONSULTATION: Antibiotic management. HISTORY OF PRESENT ILLNESS: Desirae Cai is 65-year-old [place]ian male who was admitted o n 9th for evaluation of wounds on his back and right leg. The patient has numerous problems. He key s a ventilator dependent respiratory failure. The patient had brain surgery after a high fall about 6 months ago. Prior to that he was highly functioning. He also has dysphagia with a G-tube in more ce. The patient has sacral decubitus ulcers stage IV, and comes in now with sepsis either due to in fected decubitus ulcer or to his left lower lobe pneumonia on admission. PAST MEDICAL HISTORY: Operations as outlined. FAMILY HISTORY: Noncontributory. SOCIAL HISTORY: He is a former smoker, he does not drink or abuse drugs. ALLERGIES: NONE TO PENICILLIN, SULFA OR FOODS. MEDICATIONS: Per chart. REVIEW OF SYSTEMS: As per HPI. PHYSICAL EXAMINATION: GENERAL: The patient is a well-developed, well-nourished, chronically ill-appearing male who is kristine ke, but noncommunicative, in no acute distress. VITAL SIGNS: Stable. T-max 99.2. SKIN: Without generalized rash. He has a stage IV sacral decubitus over the lumbosacral area with surrounding cellulitis, second decubitus ulcer in the mid thoracic portion of the back with surround ing areas of cellulitis, third decubitus ulcer noted on the right lateral portion of the proximal th igh but with mild purulent drainage. HEENT: Within normal limits. NECK: Tracheostomy in place to vent without exudate. NECK: Supple. LYMPH NODES: None palpable. CHEST: Decreased breath sounds at the bases with scattered rhonchi. HEART: Without murmur or gallop. He is tachycardic. ABDOMEN: Soft, nontender, without organosplenomegaly or masses. He has a G-tube in place without e xudate. EXTREMITIES: Without cyanosis or clubbing. He has trace pedal edema. RECTAL AND GENITAL: Deferred. NEUROLOGIC: Does not follow commands. He is obtunded but moves all 4 extremities. HOSPITAL COURSE: On admission, his white count was 12,000, H and H 8.3 and 25.6, platelet count 480 ,000. BUN and creatinine 35/0.79. Patient was seen in consultation by numerous physicians. His ur ine is growing Kim glabrata. His blood cultures growing Klebsiella pneumoniae, ESBL. The other one is coagulase negative staph. The patient is currently on vancomycin, cefepime and Fluconazole. The Klebsiella pneumoniae, we do not know if it is sensitive to cefepime. His chest x-ray shows hyp erinflation, patchy left basilar atelectasis versus infiltrate, tracheostomy and a right PICC line a s described in the SVC. His white count today is 7.8, H and H 9 and 28.4, platelet count of 411,000 . BUN and creatinine is 18/0.66. His urine is greater than 50 white cells per high-power field, 1+ leukocyte esterase, he is nitrite negative. Patient was seen by Dr. Ramires who noted large sacral decubitus ulcers, stage IV, right trochanteric ulcer, pneumonia. He recommended to continue offloa ding, optimize nutrition, vitamin C, local care, debridement is needed. PICC line is in place. IMPRESSION AND PLAN: I am going to switch his medication around, change the fluconazole to Voricona zole since it is Kim glabrata and I am going to change his coverage for the Klebsiella pneumonia e to imipenem or to ertapenem. Will put him on ertapenem. I will dictate my findings to the hospita list and also to Dr. Ramires. Dictated By: OMER MULLER MD, JD/MINISTERIO Conf#: [id number] DID#: [id number]
[2016-09-23] MEDS: ERTAPENEM SODIUM 1 GM in SOD CHLORIDE 0.9% 100 ML IVPB SCH (16:51)
[2016-09-23] MEDS: ALBUTEROL HFA 8 GM INHALER INH PRN (20:47)
[2016-09-23] MEDS: IPRATROPIUM (HFA) 12.9 GM INHALER INH PRN (20:47)
[2016-09-23] MEDS: VORICONAZOLE 200 MG TAB GTB SCH (21:00)
[2016-09-24] VITALS (26 sets, daily range): BP systolic 93–149; BP diastolic 56–71; PULSE 90–105; RESP 17–23
[2016-09-24] MEDS: IPRATROPIUM (HFA) 12.9 GM INHALER INH PRN (01:38)
[2016-09-24] MEDS: ALBUTEROL HFA 8 GM INHALER INH PRN (01:38)
[2016-09-24] MEDS: HYDROCODONE/APAP (5/325) TAB GTB SCH ×7 (02:16→22:37)
[2016-09-24] MEDS: COLLAGENASE 30 GM TUBE TOP SCH (09:00)
[2016-09-24] MEDS: MULTIVITAMINS 5 ML CUP GTB SCH (09:00)
[2016-09-24] MEDS: SODIUM CHLORIDE 1 GM TAB GTB SCH ×2 (09:00→20:03)
[2016-09-24] MEDS: SOD CHLORIDE 0.9% 1,000 ML IV SCH ×2 (09:30→19:45)
[2016-09-24] MEDS: LEVETIRACETAM 750 MG TAB GTB SCH ×2 (09:31→20:03)
[2016-09-24] MEDS: LABETALOL 100 MG TAB GTB SCH ×2 (09:31→20:03)
[2016-09-24] MEDS: NIFEdipine 10 MG CAP GTB SCH ×2 (09:32→20:02)
[2016-09-24] MEDS: ASCORBIC ACID 500 MG TAB GTB SCH (09:32)
[2016-09-24] MEDS: ZINC SULFATE 220 MG CAP GTB SCH (09:32)
[2016-09-24] MEDS: VORICONAZOLE 200 MG TAB GTB SCH ×2 (09:32→20:03)
[2016-09-24] MEDS: FUROSEMIDE 40 MG/4 ML CUP GTB SCH (09:33)
[2016-09-24] MEDS: BISACODYL 10 MG SUPP PR SCH (09:33)
[2016-09-24] MEDS: SODIUM HYPOCHLORITE 0.125% 473 ML BTL IRR SCH ×2 (09:33→20:03)
[2016-09-24] MEDS: FERROUS SULFATE (EC) 325 MG TAB PO SCH ×3 (09:33→20:03)
[2016-09-24] MEDS: ENOXAPARIN 30 MG/0.3 ML SYG SC SCH (10:07)
--- NOTE | 2016-09-24 10:15 | PN ---
Date/Time of Note Date/Time of Note DATE: 09/24/16 TIME: 10:14 Assessment/Plan Lines/Catheters IV Catheter Type (from [facility]): PICC Line Ferrari in Place (from [facility]): Yes Assessment/Plan Chief Complaint/Hosp Course 1. Sacrococcygeal stage IV decubitus ulcer. -off-loading -optimize nutrition -vitamin C -local care 2. Trochanteric decubitus ulcer -as above. 3. Low back decubitus ulcer -as above. 4. Hypoalbuminemia. He will benefit from nutritional optimization. 5. Dysphagia on tube feeds. 6. Anemia without evidence of acute blood loss. Continue close observation. 7. Urinary tract infection. Continue antibiotics. 8. Possible pneumonia. Continue pulmonary toilet, ventilator management, and antibiotics. 9. Leukocytosis secondary to above, status post antibiotic, resolved. 10. Brain injury with hemorrhage and encephalopathy. Continue medical optimization, nutritional optimization, and offloading. Thank you Problems: Subjective 24 Hr Interval Summary No f/c. No n/v. No cough. No sz. No rash. No pyuria. No bloating. No blood per mouth or rectum. Wounds. Exam/Review of Systems Vital Signs Vitals Vital Signs Date Time Temp Pulse Resp B/P Pulse Ox O2 Delivery O2 Flow Rate FiO2 09/24/16 08:00 97 09/24/16 07:37 98.9 19 115/71 100 09/24/16 05:44 35 09/21/16 20:20 Mechanical Ventilator Intake and Output 09/23/16 09/23/16 09/24/16 15:00 23:00 07:00 Intake Total 680 ml 600 ml Output Total 950 ml Balance -270 ml 600 ml Exam Free Text/Dictation GENERAL: Noncommunicative. HEENT: Pupils are reactive. No scleral icterus. Mucous membranes somewhat dry. NECK: No crepitus. Trach present. No JVD. PULMONARY: Normal respiratory effort. No wheezing. HEART: S1, S2 present. ABDOMEN: Soft. PEG in place. EXTREMITIES: Contraction. VASCULAR: Capillary refill is 3 seconds. NEUROLOGIC: Does not follow commands. SKIN: No rashes, no jaundice. Multiple decubitus of the trochanter, sacrococcyx, low back, and other areas with debris. No purulence. No odor. Results Result Diagram: 09/23/1636 09/23/16635 ELGIN KELLER MD Sep 24, 2016 10:15
[2016-09-24] MEDS: VANCOMYCIN 1.5 GM in SOD CHLORIDE 0.9% 250 ML IVPB SCH ×2 (12:00→13:00)
--- NOTE | 2016-09-24 14:45 | PN ---
Date/Time of Note Date/Time of Note DATE: 09/24/16 TIME: 14:30 Assessment/Plan VTE Prophylaxis VTE Prophylaxis Intervention: LMWH Lines/Catheters IV Catheter Type (from Nrs): PICC Line Central line still needed: Yes Urinary Cath still in place: Yes Reason Cath still needed: other (indicate) Assessment/Plan Chief Complaint/Hosp Course Assessment/Plan 1) Sepsis due to infected decubitus ulcers Continue broad-spectrum antibiotics: Vanco and Cefipime 2) Left lower lobe pneumonia Continue antibiotics as above 3) Sacral decubitus ulcer, stage IV Follow-up wound cultures Wound Care Consult, Air Mattress, general surgeon consulted 4) Normocytic anemia, Anemia of Chronic Disease vs Iron Deficiency vs. Blood Loss Continue to monitor, stable 5) Acute cystitis with yeast Continue fluconazole 6) Ventilator dependent Continue current settings. Plastic Die Maker Apprentice been consulted 7) SIRS with bacteremia Infectious disease doctor has been consulted, continue broad-spectrum IV antibiotics 8) urinary tract infection As above 9) dysphagia Continue PEG tube feeding 10) history of intracranial hemorrhage and craniotomy with facial fractures No acute issues at this time We will continue monitor patient closely for recommendation management treatment as clinical course Plan to transfer back to alf facility with IV antibiotics tomorrow Problems: Subjective 24 Hr Interval Summary Free Text/Dictation No acute changes Patient is tolerating PEG tube feeding Afebrile Exam/Review of Systems Vital Signs Vitals Vital Signs Date Time Temp Pulse Resp B/P Pulse Ox O2 Delivery O2 Flow Rate FiO2 09/24/16 12:09 105 18 100 35 09/24/16 11:53 98.0 111/70 09/21/16 20:20 Mechanical Ventilator Intake and Output 09/23/16 09/23/16 09/24/16 15:00 23:00 07:00 Intake Total 680 ml 600 ml Output Total 950 ml Balance -270 ml 600 ml Exam General: The patient is not in acute distress. HEENT: Atraumatic, normocephalic. The pupils are equal and round . Neck: Trach in place Chest: Normal expansion of the thorax during inspiration Lungs: Clear to auscultation bilaterally Heart: Normal S1-S2, Regular rhythm and rate. Abdomen: Soft , nontender, nondistended , bowel sounds are present. PEG tube site is dry and clean with no evidence of infection Extremities: Severe muscle wasting bilateral lower extremity, no edema no cyanosis, bilateral lower extremity contracture Neurologic: mental status at baseline,The patient is awake, alert Skin: Stage III sacral decubitus Results Result Diagram: 09/23/1636 09/23/1636 Medications Medications Current Medications Acetaminophen (Tylenol Tab) 650 mg Q6H PRN GTB MILD PAIN -10/21; Start 09/19/16 at 20:30 Ascorbic Acid (Vitamin C) 500 mg DAILY GTB Last administered on 09/24/16 09:32 ; Admin Dose 500 MG; Start 09/20/16 at 09:00 Bisacodyl (Dulcolax Supp) 10 mg DAILY MA Last administered on 09/24/16 09:33; Admin Dose 10 MG; Start 09/20/16 at 09:00 Ferrous Sulfate (Ferrous Sulfate (Ec)) 325 mg TID PO Last administered on 09:33; Admin Dose 325 MG; Start 09/19/16 at 21:00 Furosemide (Lasix) 40 mg QAM GTB Last administered on 09/24/16 09:33; Admin Dose 40 MG; Start 09/20/16 at 09:00 Hydralazine HCl (Apresoline) 10 mg QID PRN GTB HTN; Start 09/19/16 at 20:30 Acetaminophen/ Hydrocodone Bitart ([place] (5/325)) 1 tab Q4H GTB Last administered on 09/24/16 09:49; Admin Dose 1 TAB; Start 09/19/16 at 22:15 Labetalol HCl (Normodyne) 100 mg BID GTB Last administered on 09/24/16 09:31; Admin Dose 100 MG; Start 09/19/16 at 21:00 Levetiracetam (Keppra) 750 mg BID GTB Last administered on 09/24/16 09:31; Admin Dose 750 MG; Start 09/19/16 at 21:00 Lorazepam (Ativan) 0.5 mg Q6 PRN GTB ANXIETY; Start 09/19/16 at 20:30 Sodium Biphosphate/ Sodium Phosphate (Fleet Enema Pediatric) 66.6 ml Q3D PRN [place] CONSTIPATION; Start 09/19/16 at 20:30 Sodium Chloride (Nacl) 1 gm BID GTB Last administered on 09/23/16 21:00; Admin Dose 1 GM; Start 09/19/16 at 21:00 Zinc Sulfate (Zinc Sulfate) 220 mg DAILY GTB Last administered on 09/24/16 09: 32; Admin Dose 220 MG; Start 09/20/16 at 09:00 Multivitamins 5 ml 5 ml DAILY GTB Last administered on 09/22/16 10:32; Admin Dose 5 ML; Start 09/20/16 at 09:00 Sodium Chloride (NS) 1,000 ml @ 50 mls/hr Q20H IV Last administered on 09:30; Admin Dose 50 MLS/HR; Start 09/19/16 at 20:12 Nitroglycerin (Nitroglycerin (Sl Tab) 0.4 Mg) 1 tab Q5M PRN SL CHEST PAIN; Start 09/19/16 at 20:30 Collagenase (Santyl) 1 applic DAILY TOP Last administered on 09/23/16 11:07; Admin Dose 1 APPLIC; Start 09/20/16 at 16:00 Sodium Hypochlorite (Dakin'S (1/4 Strength)) 1 applic BID IRR Last administered on 09/24/16 09:33; Admin Dose 1 APPLIC; Start 09/20/16 at 16:00 Nifedipine 20 mg 20 mg BID GTB Last administered on 09/24/16 09:32; Admin Dose 20 MG; Start 09/21/16 at 21:00 Vancomycin HCl/ Sodium Chloride (Vancocin/NS) 250 ml @ 83.333 mls/ hr Q24H IVPB Last administered on 09/23/16 13:31; Admin Dose 83.333 MLS/HR; Start 06/29 at 12:00 Enoxaparin Sodium 30 mg 30 mg DAILY SC Last administered on 09/24/16 10:07; Admin Dose 30 MG; Start 09/23/16 at 09:00 Ertapenem/Sodium Chloride (Invanz/NS) 100 ml @ 200 mls/hr Q24H IVPB Last administered on 09/23/16 16:51; Admin Dose 200 MLS/HR; Start 09/23/16 at 16:00 Voriconazole (Vfend) 200 mg BID GTB Last administered on 09/24/16 09:32; Admin Dose 200 MG; Start 09/23/16 at 21:00 Miscellaneous Information (*Rx Drug Level Order Reminder*) 1 ONCE ONCE XX ; Start 09/25/16 at 11:00; Stop 09/25/16 at 11:01 RAMANDEEP DYKES MD Sep 24, 2016 14:40
[2016-09-24] MEDS: ERTAPENEM SODIUM 1 GM in SOD CHLORIDE 0.9% 100 ML IVPB SCH (16:43)
--- NOTE | 2016-09-24 16:55 | PN ---
DATE: 09/24/2016 SUBJECTIVE: This is an infectious disease progress note. No acute events. Patient is lying comfor tably in bed. He is nonverbal, noncommunicative. No fevers. No labs. MICROBIOLOGY: Blood culture grew Klebsiella ESBL. Urine culture growing Kim glabrata. Blood c ulture also grew coagulase-negative staph species. DIAGNOSTICS: Chest x-ray on admission revealed patchy left basilar atelectasis versus infiltrate. INDWELLINGS: Trach, PICC line, Ferrari. ANTIMICROBIALS: The patient is on: 1. Invanz. 2. Vancomycin. 3. Voriconazole. PHYSICAL EXAMINATION: GENERAL: Chronically ill-appearing, elderly man who is lying comfortably in bed. HEENT: Head atraumatic, normocephalic. Sclerae anicteric. Buccal mucosa dry. NECK: Supple. Tracheostomy present. CHEST: Rise symmetrical. Breath sounds diminished to bases. HEART: S1, S2. ABDOMEN: Soft, bowel tones present. EXTREMITIES: No cyanosis. SKIN: With multiple decubitus. ASSESSMENT: 1. Klebsiella, extended-spectrum beta-lactamase bacteremia. 2. Urinary tract infection. 3. Multiple decubitus. 4. Chronic respiratory failure. 5. Chronic encephalopathy. 6. History of brain surgery. PLAN: The patient remains stable on appropriate antimicrobials. We are going to repeat blood cultu res. Continue local wound care as per surgical recommendations. Dictated By: JADA FOSS JAVA LEAD ARCHITECT for [employer] BOX/NTS Conf#: [id number] DID#: [id number]
[2016-09-25] VITALS (24 sets, daily range): BP systolic 97–113; BP diastolic 58–65; PULSE 83–113; RESP 14–26
[2016-09-25] MEDS: HYDROCODONE/APAP (5/325) TAB GTB SCH ×6 (02:15→22:09)
[2016-09-25 06:17] LABS: ADD SCAN DIFF NO
[2016-09-25 06:29] LABS: BASOPHIL # 0.1 10^3/ul (0.0-0.1); BASOPHILS % 0.6 % (0.0-2.0); EOSINOPHILS # 1.1 10^3/ul (0.0-0.5); EOSINOPHILS % 13.9 % (0.0-7.0); HEMATOCRIT 27.1 % (42.0-52.0); HEMOGLOBIN 8.6 g/dl (14.0-18.0); LYMPHOCYTES # 1.3 10^3/ul (0.8-2.9); LYMPHOCYTES % 16.4 % (15.0-51.0); MEAN CORPUSCULAR HEMOGLOBIN 32.8 pg (29.0-33.0); MEAN CORPUSCULAR HGB CONC 31.7 g/dl (32.0-37.0); MEAN CORPUSCULAR VOLUME 103.4 fl (82.0-101.0); MEAN PLATELET VOLUME 9.5 fl (7.4-10.4); MONOCYTE # 0.7 10^3/ul (0.3-0.9); MONOCYTES % 8.3 % (0.0-11.0); NEUTROPHIL # 4.8 10^3/ul (1.6-7.5); NEUTROPHILS % 59.8 % (39.0-77.0); PLATELET COUNT 368 10^3/UL (140-415); RED BLOOD COUNT 2.62 10^6/ul (4.70-6.10); RED CELL DISTRIBUTION WIDTH 14.6 % (11.5-14.5)
[2016-09-25 06:33] LABS: POTASSIUM 3.9 mmol/L (3.5-5.1)
[2016-09-25 06:36] LABS: CREATININE 0.81 mg/dl (0.61-1.24)
[2016-09-25 06:37] LABS: CALCIUM 10.2 mg/dl (8.4-10.2); MAGNESIUM 1.9 mg/dl (1.7-2.5)
[2016-09-25 07:42] LABS: FOLATE 12.3 ng/ml (2.8-20.0)
[2016-09-25] MEDS: ASCORBIC ACID 500 MG TAB GTB SCH (09:22)
[2016-09-25] MEDS: FERROUS SULFATE (EC) 325 MG TAB PO SCH ×3 (09:22→20:40)
[2016-09-25] MEDS: VORICONAZOLE 200 MG TAB GTB SCH ×2 (09:22→20:42)
[2016-09-25] MEDS: FUROSEMIDE 40 MG/4 ML CUP GTB SCH (09:22)
[2016-09-25] MEDS: LEVETIRACETAM 750 MG TAB GTB SCH ×2 (09:22→20:40)
[2016-09-25] MEDS: ZINC SULFATE 220 MG CAP GTB SCH (09:22)
[2016-09-25] MEDS: SODIUM CHLORIDE 1 GM TAB GTB SCH ×2 (09:22→20:40)
[2016-09-25] MEDS: LABETALOL 100 MG TAB GTB SCH ×2 (09:23→20:40)
[2016-09-25] MEDS: NIFEdipine 10 MG CAP GTB SCH ×2 (09:23→20:40)
[2016-09-25] MEDS: MULTIVITAMINS 5 ML CUP GTB SCH (09:23)
[2016-09-25] MEDS: ENOXAPARIN 30 MG/0.3 ML SYG SC SCH (09:25)
[2016-09-25] MEDS: BISACODYL 10 MG SUPP PR SCH (09:30)
[2016-09-25] MEDS: SODIUM HYPOCHLORITE 0.125% 473 ML BTL IRR SCH ×2 (09:31→20:43)
[2016-09-25] MEDS: COLLAGENASE 30 GM TUBE TOP SCH (09:31)
--- NOTE | 2016-09-25 12:28 | PDOCDIS ---
Discharge Instructions CONDITION Patient Condition: Fair HOME CARE INSTRUCTIONS: Special Diet: GT FEEDING ACTIVITY: Activity Restrictions: Special Program OTHER ORDERS: Other Orders: Wound care protocol RAMANDEEP DYKES MD Sep 25, 2016 12:28
--- NOTE | 2016-09-25 15:01 | CONS ---
Date/Time of Note Date/Time of Note DATE: 09/25/16 TIME: 15:00 Assessment/Plan Assessment/Plan Chief Complaint/Hosp Course SUBJECTIVE: No acute events. Patient is lying comfortably in bed. He is nonverbal, noncommunicative. No fevers. No labs. MICROBIOLOGY: Blood culture grew Klebsiella ESBL. Urine culture growing Kim glabrata. Blood culture also grew coagulase-negative staph species. DIAGNOSTICS: Chest x-ray on admission revealed patchy left basilar atelectasis versus infiltrate. INDWELLINGS: Trach, PICC line, Ferrari. ANTIMICROBIALS: The patient is on: 1. Invanz. 2. Vancomycin. 3. Voriconazole. PHYSICAL EXAMINATION: GENERAL: Chronically ill-appearing, elderly man who is lying comfortably in bed. HEENT: Head atraumatic, normocephalic. Sclerae anicteric. Buccal mucosa dry. NECK: Supple. Tracheostomy present. CHEST: Rise symmetrical. Breath sounds diminished to bases. HEART: S1, S2. ABDOMEN: Soft, bowel tones present. EXTREMITIES: No cyanosis. SKIN: With multiple decubitus. ASSESSMENT: 1. Klebsiella, extended-spectrum beta-lactamase bacteremia. 2. Urinary tract infection. 3. Multiple decubitus. 4. Chronic respiratory failure. 5. Chronic encephalopathy. 6. History of brain surgery. PLAN: The patient remains stable, repeat bld cx negative, continue abx, local wound care as per surgical recommendations. Complete 2 weeks abx for bacteremia DW staff Problems: Consultation Date/Type/Reason Admit Date/Time Sep 19, 2016 at 19:30 Initial Consult Date 09/20/16 Type of Consultation: ID Exam/Review of Systems Vital Signs Vitals Vital Signs Date Time Temp Pulse Resp B/P Pulse Ox O2 Delivery O2 Flow Rate FiO2 09/25/16 13:18 96 26 99 35 09/25/16 11:06 98.2 98/58 09/21/16 20:20 Mechanical Ventilator Intake and Output 09/24/16 09/24/16 09/25/16 15:00 23:00 07:00 Intake Total 800 ml Output Total 1200 ml Balance -400 ml Results Result Diagram: 09/25/16 0525 09/25/16 0525 Results 24 hrs Laboratory Tests Test 09/25/16 05:25 09/25/16 10:55 Anion Gap 13 Basophils # 0.1 Basophils % 0.6 Blood Urea Nitrogen 22 H Calcium Level 10.2 Carbon Dioxide Level 31 Chloride Level 102 Creatinine 0.81 Eosinophils # 1.1 H Eosinophils % 13.9 H Folate 12.3 Glucose Level 89 Hematocrit 27.1 L Hemoglobin 8.6 L Lymphocytes # 1.3 Lymphocytes % 16.4 Magnesium Level 1.9 Mean Corpuscular Hemoglobin 32.8 Mean Corpuscular Hemoglobin Concent 31.7 L Mean Corpuscular Volume 103.4 H Mean Platelet Volume 9.5 Monocytes # 0.7 Monocytes % 8.3 Neutrophils # 4.8 Neutrophils % 59.8 Nucleated Red Blood Cells # 0.0 Nucleated Red Blood Cells % 0.0 Platelet Count 368 Potassium Level 3.9 Red Blood Count 2.62 L Red Cell Distribution Width 14.6 H Sodium Level 142 Vitamin B12 Level 495 White Blood Count 8.0 Vancomycin Level Trough 28.4 *H Medications Medications Current Medications Acetaminophen (Tylenol Tab) 650 mg Q6H PRN GTB MILD PAIN -10/21; Start 09/19/16 at 20:30 Ascorbic Acid (Vitamin C) 500 mg DAILY GTB Last administered on 09/25/16 09:22 ; Admin Dose 500 MG; Start 09/20/16 at 09:00 Bisacodyl (Dulcolax Supp) 10 mg DAILY RI Last administered on 09/25/16 09:30; Admin Dose 10 MG; Start 09/20/16 at 09:00 Ferrous Sulfate (Ferrous Sulfate (Ec)) 325 mg TID PO Last administered on 12:58; Admin Dose 325 MG; Start 09/19/16 at 21:00 Furosemide (Lasix) 40 mg QAM GTB Last administered on 09/25/16 09:22; Admin Dose 40 MG; Start 09/20/16 at 09:00 Hydralazine HCl (Apresoline) 10 mg QID PRN GTB HTN; Start 09/19/16 at 20:30 Acetaminophen/ Hydrocodone Bitart ([place] (5/325)) 1 tab Q4H GTB Last administered on 09/25/16 11:46; Admin Dose 1 TAB; Start 09/19/16 at 22:15 Labetalol HCl (Normodyne) 100 mg BID GTB Last administered on 09/25/16 09:23; Admin Dose 100 MG; Start 09/19/16 at 21:00 Levetiracetam (Keppra) 750 mg BID GTB Last administered on 09/25/16 09:22; Admin Dose 750 MG; Start 09/19/16 at 21:00 Lorazepam (Ativan) 0.5 mg Q6 PRN GTB ANXIETY; Start 09/19/16 at 20:30 Sodium Biphosphate/ Sodium Phosphate (Fleet Enema Pediatric) 66.6 ml Q3D PRN [place] CONSTIPATION; Start 09/19/16 at 20:30 Sodium Chloride (Nacl) 1 gm BID GTB Last administered on 09/25/16 09:22; Admin Dose 1 GM; Start 09/19/16 at 21:00 Zinc Sulfate (Zinc Sulfate) 220 mg DAILY GTB Last administered on 09/25/16 09: 22; Admin Dose 220 MG; Start 09/20/16 at 09:00 Multivitamins 5 ml 5 ml DAILY GTB Last administered on 09/25/16 09:23; Admin Dose 5 ML; Start 09/20/16 at 09:00 Sodium Chloride (NS) 1,000 ml @ 50 mls/hr Q20H IV Last administered on 19:45; Admin Dose 50 MLS/HR; Start 09/19/16 at 20:12 Nitroglycerin (Nitroglycerin (Sl Tab) 0.4 Mg) 1 tab Q5M PRN SL CHEST PAIN; Start 09/19/16 at 20:30 Collagenase (Santyl) 1 applic DAILY TOP Last administered on 09/25/16 09:31; Admin Dose 1 APPLIC; Start 09/20/16 at 16:00 Sodium Hypochlorite (Dakin'S (1/4 Strength)) 1 applic BID IRR Last administered on 09/25/16 09:31; Admin Dose 1 APPLIC; Start 09/20/16 at 16:00 Nifedipine (Procardia) 20 mg BID GTB Last administered on 09/25/16 09:23; Admin Dose 20 MG; Start 09/21/16 at 21:00 Enoxaparin Sodium 30 mg 30 mg DAILY SC Last administered on 09/25/16 09:25; Admin Dose 30 MG; Start 09/23/16 at 09:00 Ertapenem/Sodium Chloride (Invanz/NS) 100 ml @ 200 mls/hr Q24H IVPB Last administered on 09/24/16 16:43; Admin Dose 200 MLS/HR; Start 09/23/16 at 16:00 Voriconazole 200 mg 200 mg BID GTB Last administered on 09/25/16 09:22; Admin Dose 200 MG; Start 09/23/16 at 21:00 Vancomycin HCl/ Sodium Chloride (Vancocin/NS) 150 ml @ 75 mls/hr Q24H IVPB ; Start 09/26/16 at 06:00 JADA FOSS NP Sep 25, 2016 15:01
--- NOTE | 2016-09-25 15:25 | DS ---
DATE OF ADMISSION: 09/19/2016 DATE OF DISCHARGE: 09/25/2016 CONSULTANTS: 1. Top Cager. 2. Infectious disease. DIAGNOSES: 1. Klebsiella extended spectrum beta lactamase bacteremia. 2. Urinary tract infection. 3. Multiple decubitus ulcers. 4. Chronic respiratory failure. 5. Chronic encephalopathy. 6. History of cerebral hematoma. 7. Sepsis due to PEG decubitus ulcers. 8. Left lower lobe pneumonia. 9. Normocytic anemia. 10. Acute cystitis with yeast. 11. Ventilatory-dependent respiratory failure. 12. Dysphagia. MEDICATIONS: 1. Tylenol. 2. Albuterol. 3. Vitamin C. 4. Dulcolax suppository. 5. Santyl. 6. Lovenox. 7. Ertapenem. 8. Ferrous sulfate. 9. Lasix. 10. Hydralazine. 11. Sargeant. 12. Atrovent. 13. Labetalol. 14. Xopenex. 15. Keppra. 16. Lorazepam. 17. Multivitamin. 18. Nifedipine. 19. Nitroglycerin. 20. Fleet enema. 21. Sodium chloride. 22. Pro-Stat liquid. 23. ____. 24. Vancomycin. 25. Vfend. 26. Zinc sulfate. 27. Free water 100 mL PEG tube q.6h. CBC, BNP, magnesium in a.m. DISPOSITION: Back to shelter facility. HOSPITAL COURSE: This is an unfortunate 65-year-old gentleman with past medical history of fall sta tus post skull fracture and cerebral hematoma, now bedbound, vent and trach dependent and PEG tube d ependent, encephalopathy, multiple hospitalizations secondary to urinary tract infection, sacral dec ubitus, sepsis, anemia who resides at a shelter facility who was transferred to [facility] secondary to having worsening of the wound on his back and his leg and found to be tachycardic and septic. WBC was found to be 12.5, hemoglobin 7.9, hematocrit 24.8, MCV 102.5. The patient was also found to be dehydrated with BUN 35. Patient was started on broad spectrum IV antib iotics. Infectious disease doctor was consulted. The patient was also seen and evaluated by teto l surgeon, was seen and evaluated by wound care nurses and the wound team management, was placed on Santyl and proper sacral decubitus care as per general surgery. The patient was to have offloading, optimize nutrition, vitamin C, and local care. The patient was placed on high protein diet via PEG tube, was seen and evaluated by infectious disease doctor. The patient's blood culture was found t o be positive for gram-positive cocci in cluster. Urine culture Kim glabrata. Blood culture wa s positive for pneumoniae with ESBL. Patient's IV antibiotic was transitioned to Invanz and was con tinued on vancomycin. This morning patient's vitals are stable with temperature 98.2, pulse 91, res pirations 17, blood pressure 198/50, and oxygen 100% in room air. The patient at this time is afebr ile, is tolerating PEG tube feeding. I had several meetings with the patient's son regarding the ca re and his main concern is the sacral decubitus which he will need wound care at the facility which he will be returning to with continuation of IV antibiotics. CONDITION AT TIME OF DISCHARGE: Fair. Dictated By: RAMANDEEP BEARD/NTS Conf#: [id number] DID#: [id number]
[2016-09-25] MEDS: SOD CHLORIDE 0.9% 1,000 ML IV SCH (16:13)
[2016-09-25] MEDS: ERTAPENEM SODIUM 1 GM in SOD CHLORIDE 0.9% 100 ML IVPB SCH (16:14)
[2016-09-26] VITALS (22 sets, daily range): BP systolic 103–118; BP diastolic 59–73; PULSE 93–107; RESP 18–25
--- NOTE | 2016-09-26 01:14 | PN ---
Date/Time of Note Date/Time of Note DATE: 09/25/16 TIME: 23:13 Assessment/Plan Lines/Catheters IV Catheter Type (from [facility]): PICC Line Ferrari in Place (from [facility]): Yes Assessment/Plan Chief Complaint/Hosp Course 1. Sacrococcygeal stage IV decubitus ulcer. -off-loading -optimize nutrition -vitamin C -local care 2. Trochanteric decubitus ulcer -as above. 3. Low back decubitus ulcer -as above. 4. Hypoalbuminemia. He will benefit from nutritional optimization. 5. Dysphagia on tube feeds. 6. Anemia without evidence of acute blood loss. Continue close observation. 7. Urinary tract infection. Continue antibiotics. 8. Possible pneumonia. Continue pulmonary toilet, ventilator management, and antibiotics. 9. Leukocytosis secondary to above, status post antibiotic, resolved. 10. Brain injury with hemorrhage and encephalopathy. Continue medical optimization, nutritional optimization, and offloading. Thank you Late entry 09/25 Problems: Subjective 24 Hr Interval Summary No f/c. No n/v. No cough. No sz. No rash. No pyuria. No bloating. No blood per mouth or rectum. Wounds. Exam/Review of Systems Vital Signs Vitals Vital Signs Date Time Temp Pulse Resp B/P Pulse Ox O2 Delivery O2 Flow Rate FiO2 09/25/16 23:48 99.5 94 24 104/65 99 09/25/16 23:23 35 Intake and Output 09/25/16 09/25/16 09/26/16 15:00 23:00 07:00 Intake Total 1400 ml Output Total 1100 ml Balance 300 ml Exam Free Text/Dictation GENERAL: Noncommunicative. HEENT: Pupils are reactive. No scleral icterus. Mucous membranes somewhat dry. NECK: No crepitus. Trach present. No JVD. PULMONARY: Normal respiratory effort. No wheezing. HEART: S1, S2 present. ABDOMEN: Soft. PEG in place. EXTREMITIES: Contraction. VASCULAR: Capillary refill is 3 seconds. NEUROLOGIC: Does not follow commands. SKIN: No rashes, no jaundice. Multiple decubitus of the trochanter, sacrococcyx, low back, and other areas with debris. No purulence. No odor. Results Result Diagram: 09/25/16 0525 09/25/16 0525 ELGIN KELLER MD Sep 26, 2016 01:14
[2016-09-26] MEDS: HYDROCODONE/APAP (5/325) TAB GTB SCH ×5 (01:45→18:43)
[2016-09-26] MEDS: VANCOMYCIN 750 MG in SOD CHLORIDE 0.9% 150 ML IVPB SCH (05:42)
[2016-09-26] MEDS: VORICONAZOLE 200 MG TAB GTB SCH ×2 (08:30→22:16)
[2016-09-26] MEDS: FERROUS SULFATE (EC) 325 MG TAB PO SCH ×3 (08:30→22:12)
[2016-09-26] MEDS: ENOXAPARIN 30 MG/0.3 ML SYG SC SCH (08:30)
[2016-09-26] MEDS: ASCORBIC ACID 500 MG TAB GTB SCH (08:31)
[2016-09-26] MEDS: NIFEdipine 10 MG CAP GTB SCH ×2 (08:31→21:00)
[2016-09-26] MEDS: BISACODYL 10 MG SUPP PR SCH (08:31)
[2016-09-26] MEDS: LEVETIRACETAM 750 MG TAB GTB SCH ×2 (08:31→22:11)
[2016-09-26] MEDS: MULTIVITAMINS 5 ML CUP GTB SCH (08:31)
[2016-09-26] MEDS: FUROSEMIDE 40 MG/4 ML CUP GTB SCH (08:31)
[2016-09-26] MEDS: SODIUM CHLORIDE 1 GM TAB GTB SCH ×2 (08:31→22:12)
[2016-09-26] MEDS: SODIUM HYPOCHLORITE 0.125% 473 ML BTL IRR SCH ×2 (08:32→22:15)
[2016-09-26] MEDS: LABETALOL 100 MG TAB GTB SCH ×2 (08:32→21:00)
[2016-09-26] MEDS: COLLAGENASE 30 GM TUBE TOP SCH (08:33)
[2016-09-26] MEDS: ZINC SULFATE 220 MG CAP GTB SCH (08:41)
--- NOTE | 2016-09-26 11:15 | PN ---
Date/Time of Note Date/Time of Note DATE: 09/26/16 TIME: 11:11 Assessment/Plan VTE Prophylaxis VTE Prophylaxis Intervention: LMWH Lines/Catheters IV Catheter Type (from [facility]): PICC Line Central line still needed: Yes Urinary Cath still in place: Yes Reason Cath still needed: other (indicate) Assessment/Plan Chief Complaint/Hosp Course Assessment/Plan 1) Sepsis due to infected decubitus ulcers Continue broad-spectrum antibiotics: Vanco and Invanz 2) Left lower lobe pneumonia Continue antibiotics as above 3) Sacral decubitus ulcer, stage IV Follow-up wound cultures Wound Care Consult, Air Mattress, general surgeon consulted No surgical intervention as per surgery 4) Normocytic anemia, Anemia of Chronic Disease vs Iron Deficiency vs. Blood Loss Continue to monitor, stable 5) Acute cystitis with yeast Continue fluconazole 6) Ventilator dependent Continue current settings. Patient Relations Representative been consulted 7) SIRS with bacteremia Infectious disease doctor has been consulted, continue broad-spectrum IV antibiotics 8) urinary tract infection As above 9) dysphagia Continue PEG tube feeding 10) history of intracranial hemorrhage and craniotomy with facial fractures No acute issues at this time We will continue monitor patient closely for recommendation management treatment as clinical course [facility] with [facility] when accepted Problems: Subjective 24 Hr Interval Summary Free Text/Dictation No acute changes Patient discharge has been delayed secondary to insurance purposes Patient is tolerating trach/vent and PEG tube feeding Has been seen and evaluated by wound care Exam/Review of Systems Vital Signs Vitals Vital Signs Date Time Temp Pulse Resp B/P Pulse Ox O2 Delivery O2 Flow Rate FiO2 09/26/16 09:10 68 22 99 35 09/26/16 07:29 98.2 113/65 Intake and Output 09/25/16 09/25/16 09/26/16 15:00 23:00 07:00 Intake Total 1400 ml Output Total 1100 ml Balance 300 ml Exam General: The patient is not in acute distress. HEENT: Atraumatic, normocephalic. The pupils are equal and round . Neck: Trach in place Chest: Normal expansion of the thorax during inspiration Lungs: Clear to auscultation bilaterally Heart: Normal S1-S2, Regular rhythm and rate. Abdomen: Soft , nontender, nondistended , bowel sounds are present. PEG tube in place Extremities: Normal to inspection, no edema no cyanosis Neurologic: Encephalopathic, the patient is awake, does not respond to verbal stimuli Skin: Stage III sacral decubitus Results Result Diagram: 09/25/1652409/25/16524 Medications Medications Current Medications Acetaminophen (Tylenol Tab) 650 mg Q6H PRN GTB MILD PAIN -10/21; Start 09/19/16 at 20:30 Ascorbic Acid (Vitamin C) 500 mg DAILY GTB Last administered on 09/26/16 08:31 ; Admin Dose 500 MG; Start 09/20/16 at 09:00 Bisacodyl (Dulcolax Supp) 10 mg DAILY MS Last administered on 09/26/16 08:31; Admin Dose 10 MG; Start 09/20/16 at 09:00 Ferrous Sulfate (Ferrous Sulfate (Ec)) 325 mg TID PO Last administered on 08:30; Admin Dose 325 MG; Start 09/19/16 at 21:00 Furosemide (Lasix) 40 mg QAM GTB Last administered on 09/26/16 08:31; Admin Dose 40 MG; Start 09/20/16 at 09:00 Hydralazine HCl (Apresoline) 10 mg QID PRN GTB HTN; Start 09/19/16 at 20:30 Acetaminophen/ Hydrocodone Bitart ([place] (5/325)) 1 tab Q4H GTB Last administered on 09/26/16 10:37; Admin Dose 1 TAB; Start 09/19/16 at 22:15 Labetalol HCl (Normodyne) 100 mg BID GTB Last administered on 09/26/16 08:32; Admin Dose 100 MG; Start 09/19/16 at 21:00 Levetiracetam (Keppra) 750 mg BID GTB Last administered on 09/26/16 08:31; Admin Dose 750 MG; Start 09/19/16 at 21:00 Lorazepam (Ativan) 0.5 mg Q6 PRN GTB ANXIETY; Start 09/19/16 at 20:30 Sodium Biphosphate/ Sodium Phosphate (Fleet Enema Pediatric) 66.6 ml Q3D PRN [place] CONSTIPATION; Start 09/19/16 at 20:30 Sodium Chloride (Nacl) 1 gm BID GTB Last administered on 09/26/16 08:31; Admin Dose 1 GM; Start 09/19/16 at 21:00 Zinc Sulfate (Zinc Sulfate) 220 mg DAILY GTB Last administered on 09/26/16 08: 41; Admin Dose 220 MG; Start 09/20/16 at 09:00 Multivitamins 5 ml 5 ml DAILY GTB Last administered on 09/26/16 08:31; Admin Dose 5 ML; Start 09/20/16 at 09:00 Sodium Chloride (NS) 1,000 ml @ 50 mls/hr Q20H IV Last administered on 16:13; Admin Dose 50 MLS/HR; Start 09/19/16 at 20:12 Nitroglycerin (Nitroglycerin (Sl Tab) 0.4 Mg) 1 tab Q5M PRN SL CHEST PAIN; Start 09/19/16 at 20:30 Collagenase (Santyl) 1 applic DAILY TOP Last administered on 09/26/16 08:33; Admin Dose 1 APPLIC; Start 09/20/16 at 16:00 Sodium Hypochlorite (Dakin'S (1/4 Strength)) 1 applic BID IRR Last administered on 09/26/16 08:32; Admin Dose 1 APPLIC; Start 09/20/16 at 16:00 Nifedipine (Procardia) 20 mg BID GTB Last administered on 09/26/16 08:31; Admin Dose 20 MG; Start 09/21/16 at 21:00 Enoxaparin Sodium 30 mg 30 mg DAILY SC Last administered on 09/26/16 08:30; Admin Dose 30 MG; Start 09/23/16 at 09:00 Ertapenem/Sodium Chloride (Invanz/NS) 100 ml @ 200 mls/hr Q24H IVPB Last administered on 09/25/16 16:14; Admin Dose 200 MLS/HR; Start 09/23/16 at 16:00 Voriconazole 200 mg 200 mg BID GTB Last administered on 09/26/16 08:30; Admin Dose 200 MG; Start 09/23/16 at 21:00 Vancomycin HCl/ Sodium Chloride (Vancocin/NS) 150 ml @ 75 mls/hr Q24H IVPB Last administered on 09/26/16 05:42; Admin Dose 75 MLS/HR; Start 09/26/16 at 06 :00 RAMANDEEP DYKES MD Sep 26, 2016 11:15
[2016-09-26] MEDS: SOD CHLORIDE 0.9% 1,000 ML IV SCH (12:12)
--- NOTE | 2016-09-26 15:25 | CONS ---
Date/Time of Note Date/Time of Note DATE: 09/26/16 TIME: 15:24 Assessment/Plan Assessment/Plan Chief Complaint/Hosp Course SUBJECTIVE: No acute events. Patient is lying comfortably in bed. He is nonverbal, noncommunicative. No fevers. MICROBIOLOGY: Blood culture grew Klebsiella ESBL. Urine culture growing Kim glabrata. Blood culture also grew coagulase-negative staph species. DIAGNOSTICS: Chest x-ray on admission revealed patchy left basilar atelectasis versus infiltrate. INDWELLINGS: Trach, PICC line, Ferrari. ANTIMICROBIALS: The patient is on: 1. Invanz. 2. Vancomycin. 3. Voriconazole. PHYSICAL EXAMINATION: GENERAL: Chronically ill-appearing, elderly man who is lying comfortably in bed. HEENT: Head atraumatic, normocephalic. Sclerae anicteric. Buccal mucosa dry. NECK: Supple. Tracheostomy present. CHEST: Rise symmetrical. Breath sounds diminished to bases. HEART: S1, S2. ABDOMEN: Soft, bowel tones present. EXTREMITIES: No cyanosis. SKIN: With multiple decubitus. ASSESSMENT: 1. Klebsiella, extended-spectrum beta-lactamase bacteremia. 2. Urinary tract infection. 3. Multiple decubitus. 4. Chronic respiratory failure. 5. Chronic encephalopathy. 6. History of brain surgery. PLAN: The patient remains stable, repeat bld cx negative, continue local wound care as per surgical recommendations. Complete 2 weeks abx for bacteremia DW staff Problems: Consultation Date/Type/Reason Admit Date/Time Sep 19, 2016 at 19:30 Initial Consult Date 09/20/16 Type of Consultation: ID Exam/Review of Systems Vital Signs Vitals Vital Signs Date Time Temp Pulse Resp B/P Pulse Ox O2 Delivery O2 Flow Rate FiO2 09/26/16 13:00 98 18 99 35 09/26/16 11:43 98.6 118/73 Intake and Output 09/25/16 09/25/16 09/26/16 15:00 23:00 07:00 Intake Total 1400 ml Output Total 1100 ml Balance 300 ml Results Result Diagram: 09/25/16 0525 09/25/16 0525 Medications Medications Current Medications Acetaminophen (Tylenol Tab) 650 mg Q6H PRN GTB MILD PAIN 1-4/10; Start 09/19/16 at 20:30 Ascorbic Acid (Vitamin C) 500 mg DAILY GTB Last administered on 09/26/16 08:31 ; Admin Dose 500 MG; Start 09/20/16 at 09:00 Bisacodyl (Dulcolax Supp) 10 mg DAILY [place] Last administered on 09/26/16 08:31; Admin Dose 10 MG; Start 09/20/16 at 09:00 Ferrous Sulfate (Ferrous Sulfate (Ec)) 325 mg TID PO Last administered on 13:36; Admin Dose 325 MG; Start 09/19/16 at 21:00 Furosemide (Lasix) 40 mg QAM GTB Last administered on 09/26/16 08:31; Admin Dose 40 MG; Start 09/20/16 at 09:00 Hydralazine HCl (Apresoline) 10 mg QID PRN GTB HTN; Start 09/19/16 at 20:30 Acetaminophen/ Hydrocodone Bitart ([place] (5/325)) 1 tab Q4H GTB Last administered on 09/26/16 14:39; Admin Dose 1 TAB; Start 09/19/16 at 22:15 Labetalol HCl (Normodyne) 100 mg BID GTB Last administered on 09/26/16 08:32; Admin Dose 100 MG; Start 09/19/16 at 21:00 Levetiracetam (Keppra) 750 mg BID GTB Last administered on 09/26/16 08:31; Admin Dose 750 MG; Start 09/19/16 at 21:00 Lorazepam (Ativan) 0.5 mg Q6 PRN GTB ANXIETY; Start 09/19/16 at 20:30 Sodium Biphosphate/ Sodium Phosphate (Fleet Enema Pediatric) 66.6 ml Q3D PRN [place] CONSTIPATION; Start 09/19/16 at 20:30 Sodium Chloride (Nacl) 1 gm BID GTB Last administered on 09/26/16 08:31; Admin Dose 1 GM; Start 09/19/16 at 21:00 Zinc Sulfate (Zinc Sulfate) 220 mg DAILY GTB Last administered on 09/26/16 08: 41; Admin Dose 220 MG; Start 09/20/16 at 09:00 Multivitamins 5 ml 5 ml DAILY GTB Last administered on 09/26/16 08:31; Admin Dose 5 ML; Start 09/20/16 at 09:00 Sodium Chloride (NS) 1,000 ml @ 50 mls/hr Q20H IV Last administered on 16:13; Admin Dose 50 MLS/HR; Start 09/19/16 at 20:12 Nitroglycerin (Nitroglycerin (Sl Tab) 0.4 Mg) 1 tab Q5M PRN SL CHEST PAIN; Start 09/19/16 at 20:30 Collagenase (Santyl) 1 applic DAILY TOP Last administered on 09/26/16 08:33; Admin Dose 1 APPLIC; Start 09/20/16 at 16:00 Sodium Hypochlorite (Dakin'S (1/4 Strength)) 1 applic BID IRR Last administered on 09/26/16 08:32; Admin Dose 1 APPLIC; Start 09/20/16 at 16:00 Nifedipine (Procardia) 20 mg BID GTB Last administered on 09/26/16 08:31; Admin Dose 20 MG; Start 09/21/16 at 21:00 Enoxaparin Sodium 30 mg 30 mg DAILY [place] Last administered on 09/26/16 08:30; Admin Dose 30 MG; Start 09/23/16 at 09:00 Ertapenem/Sodium Chloride (Invanz/NS) 100 ml @ 200 mls/hr Q24H IVPB Last administered on 09/25/16 16:14; Admin Dose 200 MLS/HR; Start 09/23/16 at 16:00 Voriconazole 200 mg 200 mg BID GTB Last administered on 09/26/16 08:30; Admin Dose 200 MG; Start 09/23/16 at 21:00 Vancomycin HCl/ Sodium Chloride (Vancocin/NS) 150 ml @ 75 mls/hr Q24H IVPB Last administered on 09/26/16 05:42; Admin Dose 75 MLS/HR; Start 09/26/16 at 06 :00 JADA FOSS NP Sep 26, 2016 15:25
[2016-09-26] MEDS: ERTAPENEM SODIUM 1 GM in SOD CHLORIDE 0.9% 100 ML IVPB SCH (16:22)
--- NOTE | 2016-09-26 23:03 | PN ---
Date/Time of Note Date/Time of Note DATE: 09/26/16 TIME: 23:01 Assessment/Plan Lines/Catheters IV Catheter Type (from [facility]): PICC Line Ferrari in Place (from [facility]): Yes Assessment/Plan Chief Complaint/Hosp Course 1. Sacrococcygeal stage IV decubitus ulcer. -off-loading -optimize nutrition -vitamin C -local care 2. Trochanteric decubitus ulcer -as above. 3. Low back decubitus ulcer -as above. 4. Hypoalbuminemia. He will benefit from nutritional optimization. 5. Dysphagia on tube feeds. 6. Anemia without evidence of acute blood loss. Continue close observation. 7. Urinary tract infection. Continue antibiotics. 8. Possible pneumonia. Continue pulmonary toilet, ventilator management, and antibiotics. 9. Leukocytosis secondary to above, status post antibiotic, resolved. 10. Brain injury with hemorrhage and encephalopathy. Continue medical optimization, nutritional optimization, and offloading. Thank you Problems: Subjective 24 Hr Interval Summary No f/c. No n/v. No cough. No sz. No rash. No pyuria. No bloating. No blood per mouth or rectum. Wounds. Exam/Review of Systems Vital Signs Vitals Vital Signs Date Time Temp Pulse Resp B/P Pulse Ox O2 Delivery O2 Flow Rate FiO2 09/26/16 20:23 97 09/26/16 19:52 98.0 18 118/66 95 09/26/16 17:05 35 Intake and Output 09/25/16 09/25/16 09/26/16 15:00 23:00 07:00 Intake Total 1400 ml Output Total 1100 ml Balance 300 ml Exam Free Text/Dictation GENERAL: Noncommunicative. HEENT: Pupils are reactive. No scleral icterus. Mucous membranes somewhat dry. NECK: No crepitus. Trach present. No JVD. PULMONARY: Normal respiratory effort. No wheezing. HEART: S1, S2 present. ABDOMEN: Soft. PEG in place. EXTREMITIES: Contraction. VASCULAR: Capillary refill is 3 seconds. NEUROLOGIC: Does not follow commands. SKIN: No rashes, no jaundice. Multiple decubitus of the trochanter, sacrococcyx, low back, and other areas. No purulence. No odor. Results Result Diagram: 09/25/16 0525 09/25/16 0525 ELGIN KELLER MD Sep 26, 2016 23:03
[2016-09-27] VITALS (24 sets, daily range): BP systolic 88–116; BP diastolic 53–78; PULSE 91–110; RESP 15–22
[2016-09-27] MEDS: HYDROCODONE/APAP (5/325) TAB GTB SCH ×5 (01:02→17:37)
[2016-09-27] MEDS: VANCOMYCIN 750 MG in SOD CHLORIDE 0.9% 150 ML IVPB SCH (06:55)
[2016-09-27 06:56] LABS: ADD SCAN DIFF NO
[2016-09-27 07:00] LABS: BASOPHILS % 0.5 % (0.0-2.0); EOSINOPHILS # 0.7 10^3/ul (0.0-0.5); EOSINOPHILS % 8.6 % (0.0-7.0); HEMATOCRIT 25.7 % (42.0-52.0); LYMPHOCYTES # 1.4 10^3/ul (0.8-2.9); LYMPHOCYTES % 16.8 % (15.0-51.0); MEAN CORPUSCULAR HEMOGLOBIN 32.1 pg (29.0-33.0); MEAN CORPUSCULAR HGB CONC 31.1 g/dl (32.0-37.0); MEAN CORPUSCULAR VOLUME 103.2 fl (82.0-101.0); MEAN PLATELET VOLUME 9.7 fl (7.4-10.4); MONOCYTE # 0.7 10^3/ul (0.3-0.9); MONOCYTES % 8.8 % (0.0-11.0); NEUTROPHIL # 5.3 10^3/ul (1.6-7.5); NEUTROPHILS % 64.6 % (39.0-77.0); PLATELET COUNT 347 10^3/UL (140-415); RED BLOOD COUNT 2.49 10^6/ul (4.70-6.10); RED CELL DISTRIBUTION WIDTH 14.4 % (11.5-14.5); WHITE BLOOD COUNT 8.2 10^3/ul (4.8-10.8)
[2016-09-27 07:17] LABS: POTASSIUM 4.2 mmol/L (3.5-5.1)
[2016-09-27 07:20] LABS: CREATININE 1.02 mg/dl (0.61-1.24)
[2016-09-27 07:21] LABS: CALCIUM 10.5 mg/dl (8.4-10.2)
--- NOTE | 2016-09-27 09:19 | CONS ---
Date/Time of Note Date/Time of Note DATE: 09/27/16 TIME: 09:17 Assessment/Plan Assessment/Plan Additional Assessment/Plan Ventilator settings; AC of 18, tidal volume 500, PEEP of 5, 30% FiO2. Assessment recommendations; 1. Patient admitted for UTI and sepsis with significant clinical improvement. 2. Chronic respiratory failure on account of severe anoxic brain injury. Status post craniotomy. 3. Hypertension. Continue current supportive care. Patient was transferred to the [place] [facility]. Overall prognosis remains poor. Consultation Date/Type/Reason Admit Date/Time Sep 19, 2016 at 19:30 Initial Consult Date 09/20/16 Type of Consultation: Pulmonary 24 HR Interval Summary Free Text/Dictation Patient condition remains stable. Remains awake but unresponsive to any commands. Has remained hemodynamically stable. General exam; elderly male, on ventilator via tracheostomy currently in no distress. Exam/Review of Systems Vital Signs Vitals Vital Signs Date Time Temp Pulse Resp B/P Pulse Ox O2 Delivery O2 Flow Rate FiO2 09/27/16 08:58 101 09/27/16 08:56 35 09/27/16 07:30 18 97 09/27/16 07:23 99.4 109/65 09/27/16 06:38 Mechanical Ventilator Intake and Output 09/26/16 09/26/16 09/27/16 15:00 23:00 07:00 Intake Total 1300 ml Output Total 3300 ml 325 ml Balance -2000 ml -325 ml Exam HEENT exam; supple neck, no JVD. No lymphadenopathy. Midline trachea. No thyromegaly. There is a well-healed ventral scar. Tracheostomy in place with clean insertion site. Pupils are small bilaterally. Chest examination HI: Diminished but clear breath sounds bilaterally. S1-S2 audible, no murmurs. Regular rhythm. Abdomen examination; soft, nondistended. No organomegaly. G-tube in place. Extremity exam is; no peripheral edema. DESK MAKER examination; patient remains unresponsive. Results Result Diagram: 09/27/16 0615 09/27/16 0615 Results 24 hrs Laboratory Tests Test 09/27/16 06:15 Anion Gap 13 Basophils # 0.0 Basophils % 0.5 Blood Urea Nitrogen 26 H Calcium Level 10.5 H Carbon Dioxide Level 32 H Chloride Level 102 Creatinine 1.02 Eosinophils # 0.7 H Eosinophils % 8.6 H Glucose Level 106 Hematocrit 25.7 L Hemoglobin 8.0 L Lymphocytes # 1.4 Lymphocytes % 16.8 Mean Corpuscular Hemoglobin 32.1 Mean Corpuscular Hemoglobin Concent 31.1 L Mean Corpuscular Volume 103.2 H Mean Platelet Volume 9.7 Monocytes # 0.7 Monocytes % 8.8 Neutrophils # 5.3 Neutrophils % 64.6 Nucleated Red Blood Cells # 0.0 Nucleated Red Blood Cells % 0.0 Platelet Count 347 Potassium Level 4.2 Red Blood Count 2.49 L Red Cell Distribution Width 14.4 Sodium Level 143 White Blood Count 8.2 Medications Medications Current Medications Acetaminophen (Tylenol Tab) 650 mg Q6H PRN GTB MILD PAIN -10/21; Start 09/19/16 at 20:30 Ascorbic Acid (Vitamin C) 500 mg DAILY GTB Last administered on 09/26/16 08:31 ; Admin Dose 500 MG; Start 09/20/16 at 09:00 Bisacodyl (Dulcolax Supp) 10 mg DAILY [place] Last administered on 09/26/16 08:31; Admin Dose 10 MG; Start 09/20/16 at 09:00 Ferrous Sulfate (Ferrous Sulfate (Ec)) 325 mg TID PO Last administered on 22:12; Admin Dose 325 MG; Start 09/19/16 at 21:00 Furosemide (Lasix) 40 mg QAM GTB Last administered on 09/26/16 08:31; Admin Dose 40 MG; Start 09/20/16 at 09:00 Hydralazine HCl (Apresoline) 10 mg QID PRN GTB HTN; Start 09/19/16 at 20:30 Acetaminophen/ Hydrocodone Bitart ([place] (5/325)) 1 tab Q4H GTB Last administered on 09/27/16 04:22; Admin Dose 1 TAB; Start 09/19/16 at 22:15 Labetalol HCl (Normodyne) 100 mg BID GTB Last administered on 09/26/16 08:32; Admin Dose 100 MG; Start 09/19/16 at 21:00 Levetiracetam (Keppra) 750 mg BID GTB Last administered on 09/26/16 22:11; Admin Dose 750 MG; Start 09/19/16 at 21:00 Lorazepam (Ativan) 0.5 mg Q6 PRN GTB ANXIETY; Start 09/19/16 at 20:30 Sodium Biphosphate/ Sodium Phosphate (Fleet Enema Pediatric) 66.6 ml Q3D PRN [place] CONSTIPATION; Start 09/19/16 at 20:30 Sodium Chloride (Nacl) 1 gm BID GTB Last administered on 09/26/16 22:12; Admin Dose 1 GM; Start 09/19/16 at 21:00 Zinc Sulfate (Zinc Sulfate) 220 mg DAILY GTB Last administered on 09/26/16 08: 41; Admin Dose 220 MG; Start 09/20/16 at 09:00 Multivitamins 5 ml 5 ml DAILY GTB Last administered on 09/26/16 08:31; Admin Dose 5 ML; Start 09/20/16 at 09:00 Sodium Chloride (NS) 1,000 ml @ 50 mls/hr Q20H IV Last administered on 16:13; Admin Dose 50 MLS/HR; Start 09/19/16 at 20:12 Nitroglycerin (Nitroglycerin (Sl Tab) 0.4 Mg) 1 tab Q5M PRN SL CHEST PAIN; Start 09/19/16 at 20:30 Collagenase (Santyl) 1 applic DAILY TOP Last administered on 09/26/16 08:33; Admin Dose 1 APPLIC; Start 09/20/16 at 16:00 Sodium Hypochlorite (Dakin'S (1/4 Strength)) 1 applic BID IRR Last administered on 09/26/16 22:15; Admin Dose 1 APPLIC; Start 09/20/16 at 16:00 Nifedipine (Procardia) 20 mg BID GTB Last administered on 09/26/16 08:31; Admin Dose 20 MG; Start 09/21/16 at 21:00 Enoxaparin Sodium 30 mg 30 mg DAILY SC Last administered on 09/26/16 08:30; Admin Dose 30 MG; Start 09/23/16 at 09:00 Ertapenem/Sodium Chloride (Invanz/NS) 100 ml @ 200 mls/hr Q24H IVPB Last administered on 09/26/16 16:22; Admin Dose 200 MLS/HR; Start 09/23/16 at 16:00 Voriconazole 200 mg 200 mg BID GTB Last administered on 09/26/16 22:16; Admin Dose 200 MG; Start 09/23/16 at 21:00 Vancomycin HCl/ Sodium Chloride (Vancocin/NS) 150 ml @ 75 mls/hr Q24H IVPB Last administered on 09/27/16t 06:55; Admin Dose 75 MLS/HR; Start 09/26/16 at 06 :00 Miscellaneous Information (*Rx Drug Level Order Reminder*) VANCO TROUGH @ 0, 500 ON... ONCE ONCE XX ; Start 09/28/16 at 05:00; Stop 09/28/16 at 05:01 MARTIR CURRIE 17, 2017 09:19
[2016-09-27] MEDS: ASCORBIC ACID 500 MG TAB GTB SCH (10:51)
[2016-09-27] MEDS: FERROUS SULFATE (EC) 325 MG TAB PO SCH ×2 (10:51→15:02)
[2016-09-27] MEDS: SODIUM CHLORIDE 1 GM TAB GTB SCH (10:51)
[2016-09-27] MEDS: FUROSEMIDE 40 MG/4 ML CUP GTB SCH (10:51)
[2016-09-27] MEDS: BISACODYL 10 MG SUPP PR SCH (10:51)
[2016-09-27] MEDS: LEVETIRACETAM 750 MG TAB GTB SCH (10:51)
[2016-09-27] MEDS: VORICONAZOLE 200 MG TAB GTB SCH (10:52)
[2016-09-27] MEDS: ZINC SULFATE 220 MG CAP GTB SCH (10:53)
[2016-09-27] MEDS: LABETALOL 100 MG TAB GTB SCH (10:55)
[2016-09-27] MEDS: MULTIVITAMINS 5 ML CUP GTB SCH (10:56)
[2016-09-27] MEDS: NIFEdipine 10 MG CAP GTB SCH (10:58)
[2016-09-27] MEDS: SODIUM HYPOCHLORITE 0.125% 473 ML BTL IRR SCH (11:00)
[2016-09-27] MEDS: COLLAGENASE 30 GM TUBE TOP SCH (11:01)
[2016-09-27] MEDS: ENOXAPARIN 30 MG/0.3 ML SYG SC SCH (11:19)
--- NOTE | 2016-09-27 11:55 | DS ---
DATE OF ADMISSION: 09/19/2016 DATE OF DISCHARGE: 09/27/2016 ADDENDUM CONSULTANTS: 1. Pool Technician. 2. Infectious Disease. 3. General Surgery. DIAGNOSES: 1. Klebsiella extended spectrum beta lactamase bacteremia. 2. Urinary tract infection. 3. Multiple decubitus ulcers. 4. Chronic respiratory failure. 5. Chronic encephalopathy. 6. History of cerebral hematoma. 7. Sepsis due to decubitus ulcer. 8. Left lower lobe pneumonia. 9. Normocytic anemia. 10. Acute cystitis with yeast. 11. Ventilatory-dependent respiratory failure. 12. Dysphagia. MEDICATIONS: Please see the list of the discharge medications on my discharge summary on 09/25/2016 . DISPOSITION: Back to [facility] facility. 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 WBC was 12.5. The patient was found to be dehydrated and was started on broad-spectrum IV antibiotics. Blood culture positive for pneumonia with ESBL. Urine culture Kim glabrata. Infectious disease doctor was consulted for his wounds. General surgery was consulted and the patient was placed on wound care. Recommendation was to have offloadi ng, optimize nutrition, vitamin C and local care. No surgical intervention. The patient was planned to be discharged to [facility] facility on 09/25/2016, although s econdary to insurance purposes, the patient's discharge was held. After a great amount of effort by the case filler, the insurance was fixed and at this time the patient is being set up to be transf erred back to [facility] facility, which is known to him and his family from the past. LABORATORY: WBC 8.3, hemoglobin 8.0, hematocrit 25.7, platelet 347, MCV 103.2. Sodium 143, potass ium 4.2, chloride 102, bicarbonate 32, BUN 26, creatinine 1.02, glucose 106, calcium 8.0. Vitamin B 12 of 495, folate 12.3. CONDITION AT THE TIME OF DISCHARGE: Fair. Dictated By: RAMANDEEP BEARD/NTS Conf#: [id number] DID#: [id number]
[2016-09-27] MEDS: SOD CHLORIDE 0.9% 1,000 ML IV SCH (15:01)
--- NOTE | 2016-09-27 15:43 | CONS ---
Date/Time of Note Date/Time of Note DATE: 09/27/16 TIME: 15:42 Assessment/Plan Assessment/Plan Chief Complaint/Hosp Course SUBJECTIVE: No acute events. Patient is lying comfortably in bed. He is nonverbal, noncommunicative. No fevers. MICROBIOLOGY: Blood culture grew Klebsiella ESBL. Urine culture growing Kim glabrata. Blood culture also grew coagulase-negative staph species. DIAGNOSTICS: Chest x-ray on admission revealed patchy left basilar atelectasis versus infiltrate. INDWELLINGS: Trach, PICC line, Ferrari. ANTIMICROBIALS: The patient is on: 1. Invanz. 2. Vancomycin. 3. Voriconazole. PHYSICAL EXAMINATION: GENERAL: Chronically ill-appearing, elderly man who is lying comfortably in bed. HEENT: Head atraumatic, normocephalic. Sclerae anicteric. Buccal mucosa dry. NECK: Supple. Tracheostomy present. CHEST: Rise symmetrical. Breath sounds diminished to bases. HEART: S1, S2. ABDOMEN: Soft, bowel tones present. EXTREMITIES: No cyanosis. SKIN: With multiple decubitus. ASSESSMENT: 1. Klebsiella, extended-spectrum beta-lactamase bacteremia. 2. Urinary tract infection. 3. Multiple decubitus. 4. Chronic respiratory failure. 5. Chronic encephalopathy. 6. History of brain surgery. PLAN: The patient remains stable, repeat bld cx negative, continue local wound care as per surgical recommendations. Complete Invanz for 9 more days, continue other abx DW staff Problems: Consultation Date/Type/Reason Admit Date/Time Sep 19, 2016 at 19:30 Initial Consult Date 09/20/16 Type of Consultation: id Exam/Review of Systems Vital Signs Vitals Vital Signs Date Time Temp Pulse Resp B/P Pulse Ox O2 Delivery O2 Flow Rate FiO2 09/27/16 15:16 99.1 78 22 99 09/27/16 15:05 35 09/27/16 12:12 Mechanical Ventilator Intake and Output 09/26/16 09/26/16 09/27/16 15:00 23:00 07:00 Intake Total 1300 ml Output Total 3300 ml 325 ml Balance -2000 ml -325 ml Results Result Diagram: 09/27/16 0615 09/27/16 0615 Results 24 hrs Laboratory Tests Test 09/27/16 06:15 Anion Gap 13 Basophils # 0.0 Basophils % 0.5 Blood Urea Nitrogen 26 H Calcium Level 10.5 H Carbon Dioxide Level 32 H Chloride Level 102 Creatinine 1.02 Eosinophils # 0.7 H Eosinophils % 8.6 H Glucose Level 106 Hematocrit 25.7 L Hemoglobin 8.0 L Lymphocytes # 1.4 Lymphocytes % 16.8 Mean Corpuscular Hemoglobin 32.1 Mean Corpuscular Hemoglobin Concent 31.1 L Mean Corpuscular Volume 103.2 H Mean Platelet Volume 9.7 Monocytes # 0.7 Monocytes % 8.8 Neutrophils # 5.3 Neutrophils % 64.6 Nucleated Red Blood Cells # 0.0 Nucleated Red Blood Cells % 0.0 Platelet Count 347 Potassium Level 4.2 Red Blood Count 2.49 L Red Cell Distribution Width 14.4 Sodium Level 143 White Blood Count 8.2 Medications Medications Current Medications Acetaminophen (Tylenol Tab) 650 mg Q6H PRN GTB MILD PAIN -10/21; Start 09/19/16 at 20:30 Ascorbic Acid (Vitamin C) 500 mg DAILY GTB Last administered on 09/27/16 10:51 ; Admin Dose 500 MG; Start 09/20/16 at 09:00 Bisacodyl (Dulcolax Supp) 10 mg DAILY [place] Last administered on 09/27/16 10:51; Admin Dose 10 MG; Start 09/20/16 at 09:00 Ferrous Sulfate (Ferrous Sulfate (Ec)) 325 mg TID PO Last administered on 15:02; Admin Dose 325 MG; Start 09/19/16 at 21:00 Furosemide (Lasix) 40 mg QAM GTB Last administered on 09/27/16 10:51; Admin Dose 40 MG; Start 09/20/16 at 09:00 Hydralazine HCl (Apresoline) 10 mg QID PRN GTB HTN; Start 09/19/16 at 20:30 Acetaminophen/ Hydrocodone Bitart ([place] (5/325)) 1 tab Q4H GTB Last administered on 09/27/16 10:52; Admin Dose 1 TAB; Start 09/19/16 at 22:15 Labetalol HCl (Normodyne) 100 mg BID GTB Last administered on 09/27/16 10:55; Admin Dose 100 MG; Start 09/19/16 at 21:00 Levetiracetam (Keppra) 750 mg BID GTB Last administered on 09/27/16 10:51; Admin Dose 750 MG; Start 09/19/16 at 21:00 Lorazepam (Ativan) 0.5 mg Q6 PRN GTB ANXIETY; Start 09/19/16 at 20:30 Sodium Biphosphate/ Sodium Phosphate (Fleet Enema Pediatric) 66.6 ml Q3D PRN [place] CONSTIPATION; Start 09/19/16 at 20:30 Sodium Chloride (Nacl) 1 gm BID GTB Last administered on 09/27/16 10:51; Admin Dose 1 GM; Start 09/19/16 at 21:00 Zinc Sulfate (Zinc Sulfate) 220 mg DAILY GTB Last administered on 09/27/16 10: 53; Admin Dose 220 MG; Start 09/20/16 at 09:00 Multivitamins 5 ml 5 ml DAILY GTB Last administered on 09/27/16 10:56; Admin Dose 5 ML; Start 09/20/16 at 09:00 Sodium Chloride (NS) 1,000 ml @ 50 mls/hr Q20H IV Last administered on 15:01; Admin Dose 50 MLS/HR; Start 09/19/16 at 20:12 Nitroglycerin (Nitroglycerin (Sl Tab) 0.4 Mg) 1 tab Q5M PRN SL CHEST PAIN; Start 09/19/16 at 20:30 Collagenase (Santyl) 1 applic DAILY TOP Last administered on 09/27/16 11:01; Admin Dose 1 APPLIC; Start 09/20/16 at 16:00 Sodium Hypochlorite (Dakin'S (1/4 Strength)) 1 applic BID IRR Last administered on 09/27/16 11:00; Admin Dose 1 APPLIC; Start 09/20/16 at 16:00 Nifedipine (Procardia) 20 mg BID GTB Last administered on 09/27/16 10:58; Admin Dose 20 MG; Start 09/21/16 at 21:00 Enoxaparin Sodium 30 mg 30 mg DAILY SC Last administered on 09/27/16 11:19; Admin Dose 30 MG; Start 09/23/16 at 09:00 Ertapenem/Sodium Chloride (Invanz/NS) 100 ml @ 200 mls/hr Q24H IVPB Last administered on 09/26/16 16:22; Admin Dose 200 MLS/HR; Start 09/23/16 at 16:00 Voriconazole 200 mg 200 mg BID GTB Last administered on 09/27/16 10:52; Admin Dose 200 MG; Start 09/23/16 at 21:00 Vancomycin HCl/ Sodium Chloride (Vancocin/NS) 150 ml @ 75 mls/hr Q24H IVPB Last administered on 09/27/16 06:55; Admin Dose 75 MLS/HR; Start 09/26/16 at 06 :00 Miscellaneous Information (*Rx Drug Level Order Reminder*) VANCO TROUGH @ 0, 500 ON... ONCE ONCE XX ; Start 09/28/16 at 05:00; Stop 09/28/16 at 05:01 JADA FOSS NP Sep 27, 2016 15:43
[2016-09-27] MEDS: ERTAPENEM SODIUM 1 GM in SOD CHLORIDE 0.9% 100 ML IVPB SCH (17:36)
--- NOTE | 2016-09-27 19:50 | PN ---
Date/Time of Note Date/Time of Note DATE: 09/27/16 TIME: 19:49 Assessment/Plan Lines/Catheters IV Catheter Type (from [facility]): PICC Line Ferrari in Place (from [facility]): Yes Assessment/Plan Chief Complaint/Hosp Course 1. Sacrococcygeal stage IV decubitus ulcer. -off-loading -optimize nutrition -vitamin C -local care 2. Trochanteric decubitus ulcer -as above. 3. Low back decubitus ulcer -as above. 4. Hypoalbuminemia. He will benefit from nutritional optimization. 5. Dysphagia on tube feeds. 6. Anemia without evidence of acute blood loss. Continue close observation. 7. Urinary tract infection. Continue antibiotics. 8. Possible pneumonia. Continue pulmonary toilet, ventilator management, and antibiotics. 9. Leukocytosis secondary to above, status post antibiotic, resolved. 10. Brain injury with hemorrhage and encephalopathy. Continue medical optimization, nutritional optimization, and offloading. Thank you Problems: Subjective 24 Hr Interval Summary No f/c. No n/v. No cough. No sz. No rash. No pyuria. No bloating. No blood per mouth or rectum. Wounds. Exam/Review of Systems Vital Signs Vitals Vital Signs Date Time Temp Pulse Resp B/P Pulse Ox O2 Delivery O2 Flow Rate FiO2 09/27/16 17:10 96 18 99 35 09/27/16 15:16 99.1 09/27/16 12:12 Mechanical Ventilator Intake and Output 09/26/16 09/26/16 09/27/16 15:00 23:00 07:00 Intake Total 1300 ml Output Total 3300 ml 325 ml Balance -2000 ml -325 ml Exam Free Text/Dictation GENERAL: Noncommunicative. HEENT: Pupils are reactive. No scleral icterus. Mucous membranes somewhat dry. NECK: No crepitus. Trach present. No JVD. PULMONARY: Normal respiratory effort. No wheezing. HEART: S1, S2 present. ABDOMEN: Soft. PEG in place. EXTREMITIES: Contraction. VASCULAR: Capillary refill is 3 seconds. NEUROLOGIC: Does not follow commands. SKIN: No rashes, no jaundice. Multiple decubitus of the trochanter, sacrococcyx, low back, and other areas. No purulence. No odor. Results Result Diagram: 09/27/1615 09/27/1615 ELGIN KELLER MD Sep 27, 2016 19:50
== END 2016-09-27 20:55 | DRG 870 ==
LOC: E/R 16:30 → TEL 19:30
PROVIDERS: ADMIT Family Medicine; ATTEND Family Medicine
PROC: 5A1955Z Respiratory Ventilation, Greater than 96 Consecutive Hours (ICD-10-PCS; principal; 2016-09-19)
DX: A41.59 Other Gram-negative sepsis (principal); G93.1 Anoxic brain damage, not elsewhere classified; J18.9 Pneumonia, unspecified organism; L89.154 Pressure ulcer of sacral region, stage 4; L89.214 Pressure ulcer of right hip, stage 4; Z99.11 Dependence on respirator [ventilator] status; J96.10 Chronic respiratory failure, unspecified whether with hypoxia or hypercapnia; B37.41 Candidal cystitis and urethritis; L03.312 Cellulitis of back [any part except buttock and flank]; D64.9 Anemia, unspecified; R13.10 Dysphagia, unspecified; E86.0 Dehydration; E88.09 Other disorders of plasma-protein metabolism, not elsewhere classified; R65.20 Severe sepsis without septic shock; Z93.0 Tracheostomy status; Z93.1 Gastrostomy status; Z74.01 Bed confinement status; Z87.820 Personal history of traumatic brain injury
CPT/HCPCS: 36415; 36430; 71010; 80048; 80053; 80202; 81001; 81003; 82550; 82553; 82607; 82746; 83605; 83735; 84484; 85025; 85610; 85730; 86850; 86900; 86901; 86920; 87040; 87086; 93005; 94002; 94003; 94640; 96372; 96374; 96375; J0692; J1335; J1450; J1650; J3370; J7030; J7050; P9016